=== PATIENT | female | born 1940 | race Caucasian/White ===

== ENCOUNTER → 2017-02-10 | Outpatient (CLI) | payer OTHER, BC | LOC: FIMAGING 14:06 | PROVIDERS: ATTEND Family Medicine | DX: M81.0 Age-related osteoporosis without current pathological fracture (principal) ==

== ENCOUNTER 2018-04-03 06:02 | Day surgery (SDC) | payer OTHER, BC ==
[2018-04-03] MEDS ORDERED: LIDOCAINE 1% 2 ML INJ ID PRN (06:11)
[2018-04-03] MEDS ORDERED: LR 1,000 ML IV ONE (06:11)
[2018-04-03] MEDS ORDERED: ceFAZolin 2 GM/SWFI 2 GM/20 ML SYR IVP ONE (06:11)
--- NOTE | 2018-04-03 06:21 | PDHPUP ---
History & Physical Update H&P update statement: This history and physical update is based on an assessment of the patient which was completed after admission or registration (within 24 hours), but prior to the surgery/procedure. H&P update: H&P reviewed & patient examined, no change in patient's condition since H&P completed
[2018-04-03] MEDS ORDERED: ceFAZolin 2 GM/DEXTROSE 100 ML IV ONE (06:30)
--- NOTE | 2018-04-03 06:56 | PDANEPAE ---
ANE History of Present Illness here for cholecystectomy ANE Past Medical History - Cardiovascular History Hx Hypertension: No Hx Arrhythmias: No Hx Chest Pain: No Hx Coronary Artery / Peripheral Vascular Disease: No Hx CHF / Valvular Disease: No Hx Palpitations: No Cardiovascular History Comment: HYPERLIPIDEMIA - Pulmonary History Hx COPD: No Hx Asthma/Reactive Airway Disease: No Hx Recent Upper Respiratory Infection: No Hx Oxygen in Use at Home: No Hx Sleep Apnea: No Sleep Apnea Screening Result - Last Documented: Negative - Neurologic History Hx Cerebrovascular Accident: No Hx Seizures: No Hx Dementia: No Neurologic History Comment: PERIPHERAL NEUROPATHY - Endocrine History Hx Diabetes: No Endocrine History Comment: HYPOTHYROIDISM - Renal History Hx Renal Disorders: No - Liver History Hx Hepatic Disorders: No - Neurological & Psychiatric Hx Hx Neurological and Psychiatric Disorders: No - Cancer History Hx Cancer: No - Congenital Disorder History Hx Congenital Disorders: No - GI History Hx Gastrointestinal Disorders: Yes Gastrointestinal History Comment: GOES BETWEEN DIARRHEA OR CONSTIPATION - Other Health History Other Health History: LEUKOCYTOSIS - Chronic Pain History Chronic Pain: No - Surgical History Prior Surgeries: X2. TUMOR REMOVED FROM NECK 2006. CATARACT SURGERY ANE Review of Systems Review of Systems: - Exercise capacity METS (RN): 5 METS ANE Patient History - Allergies Allergies/Adverse Reactions: No Known Allergies Allergy (Verified 03/30/18 17:54) - Home Medications Home medications: home medication list seen and reviewed Home Medications: Levothyroxine 08/17/16 [Last Taken 1 Day Ago ~04/02/18] Herbals/Supplements -Info Only 03/30/18 [Last Taken 03/30/18] Iron Supplement 03/30/18 [Last Taken 1 Day Ago ~04/02/18] - NPO status NPO Status: no food or drink >8 hours NPO Since - Liquids (Date): 04/02/18 NPO Since - Liquids (Time): 20:00 NPO Since - Solids (Date): 04/02/18 NPO Since - Solids (Time): 20:00 - Anes Hx Anes Hx: no prior problems - Smoking Hx Smoking Status: Never smoked - Alcohol Use Alcohol Use: None - Family Anes Hx Family Anes Hx: none Family Hx Anesthesia Complications: NONE ANE Labs/Vital Signs - Vital Signs Blood Pressure: 142/73 Heart Rate: 96 Respiratory Rate: 18 O2 Sat (%): 95 Height: 167.64 cm Weight: 57.153 kg ANE Physical Exam - Airway Neck exam: FROM Mallampati Score: Class 2 Mouth exam: normal dental/mouth exam - Pulmonary Pulmonary: no respiratory distress, clear to auscultation - Cardiovascular Cardiovascular: regular rate and rhythym, no murmur, rub, or gallop - ASA Status ASA Status: II ANE Anesthesia Plan Anesthesia Plan: general endotracheal anesthesia
[2018-04-03] MEDS ORDERED: fentaNYL 100 MCG/2 ML INJ ONE ×2 (07:02→09:48)
[2018-04-03] MEDS ORDERED: PROPOFOL 200 MG/20 ML VIAL ONE (07:03)
[2018-04-03] MEDS ORDERED: ROCURONIUM 50 MG/5 ML VIAL ONE (07:04)
[2018-04-03] MEDS ORDERED: LIDOCAINE 2% 100 MG/5 ML SYR ONE (07:04)
[2018-04-03] MEDS ORDERED: BUPIVACAINE 0.5% 30 ML SDV ONE (07:07)
[2018-04-03] MEDS ORDERED: DEXAMETHASONE 4 MG/ML VIAL ONE (07:49)
[2018-04-03] MEDS ORDERED: ONDANSETRON 4 MG/2 ML VIAL ONE (07:49)
--- NOTE | 2018-04-03 09:26 | POSTOPPROG ---
Post Op Note Date of Operation: 04/03/18 Surgeon: Radha Brooks Anesthesiologist: sudheer Anesthesia: GET(General Endotracheal) Pre-op Diagnosis: lymphadenopathy and hydrops of gallbladder Post-op Diagnosis: same Indication: 77 year old with pet avid lymph nodes and hydrops gallbladder Procedure: lap deb Findings: mass in gallbladder, poorly differentiated cancer Inf/Abcess present in the surg proc area at time of surgery?: No EBL: 50-100 Specimen(s): gallbladder
[2018-04-03] MEDS ORDERED: NALOXONE HCL 0.4 MG/ML INJ IVP PRN (09:31)
[2018-04-03] MEDS ORDERED: fentaNYL 100 MCG/2 ML INJ IVP PRN (09:31)
[2018-04-03] MEDS ORDERED: ONDANSETRON 4 MG/2 ML VIAL IVP PRN (09:31)
[2018-04-03] MEDS ORDERED: HYDROCODONE/APAP 5/325 TAB PO PRN (09:31)
[2018-04-03] MEDS ORDERED: oxyCODONE IR 5 MG TAB PO PRN (09:31)
[2018-04-03] MEDS ORDERED: ACETAMINOPHEN 500 MG TAB PO PRN (09:31)
[2018-04-03] MEDS ORDERED: PROMETHAZINE HCL 25 MG/ML INJ IVP PRN (09:31)
--- NOTE | 2018-04-03 09:33 | POSTANESTH ---
Post Anesthetic Evaluation Cardiovascular Status: Normal, Stable, Similar to Pre-Op Cond Respiratory Status: Normal, Stable, Similar to Pre-op Cond. Level of Consciousness/Mental Status: Can Participate in Eval, Alert and Oriented Pain Control: Adequate, Prn Tx Ordered Nausea/Vomiting Control: Adequate, Prn Tx Ordered Complications Possibly Related to Anesthesia: None Noted
[2018-04-03] MEDS ORDERED: HYDROCODONE/APAP 5/325 TAB ONE (10:31)
[2018-04-03 11:38] VITALS: BP 111/59
== END 2018-04-03 11:50 | disposition home or self-care (01) ==
LOC: FSGY 06:02
PROVIDERS: ATTEND Surgery
PROC: 07BC4ZX Excision of Pelvis Lymphatic, Percutaneous Endoscopic Approach, Diagnostic (ICD-10-PCS; principal; 2018-04-03 07:30)
PROC: 0FT44ZZ Resection of Gallbladder, Percutaneous Endoscopic Approach (ICD-10-PCS; principal; 2018-04-03 07:30)
DX: C23 Malignant neoplasm of gallbladder (principal); R59.1 Generalized enlarged lymph nodes; E05.90 Thyrotoxicosis, unspecified without thyrotoxic crisis or storm; E78.5 Hyperlipidemia, unspecified; R60.9 Edema, unspecified
CPT/HCPCS: J0690; J1100; J2001; J2405; J2704; J3010

== ENCOUNTER → 2018-10-26 | Outpatient (CLI) | payer OTHER, BC ==
[~2018-10-26] MED LIST: GADOBUTROL 10 ML VIAL IVP ONE
== END ==
LOC: FIMAGING 17:29
PROVIDERS: ATTEND Internal Medicine Hematology & Oncology
DX: C23 Malignant neoplasm of gallbladder (principal); R53.1 Weakness; R29.810 Facial weakness; C79.31 Secondary malignant neoplasm of brain
CPT/HCPCS: 70553; A9585

== ENCOUNTER → 2018-11-30 | Outpatient (CLI) | payer OTHER, BC | LOC: FIMAGING 12:33 | PROVIDERS: ATTEND Internal Medicine Hematology & Oncology | DX: I82.411 Acute embolism and thrombosis of right femoral vein (principal); I82.431 Acute embolism and thrombosis of right popliteal vein; I82.491 Acute embolism and thrombosis of other specified deep vein of right lower extremity ==

== ENCOUNTER 2018-12-10 10:05 | Inpatient (IN) | payer OTHER, BC ==
[2018-12-10] MEDS ORDERED: NS 500 ML IV ONE ×2 (10:45→17:30)
--- NOTE | 2018-12-10 10:47 | EDPHY ---
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 She completed whole-brain radiation therapy November 15. Ten days ago she was diagnosed with a right leg DVT and started on Xarelto which she is taking compliantly. She began feeling weak 3 days ago, went to her oncologist 3 days ago for fluid bolus, and at 2:00 a.m. Monday became increasingly weak with trouble walking. Patient arrives hypoxic in the 80s on room air and hypotensive but afebrile and not tachypneic or tachycardic. She has no physical complaints. Abdomen is soft without focal peritoneal findings. CT head today shows several large cerebellar hemorrhagic metastases that appear larger than her scans prior to radiation, the largest of which being 17 x 14 mm. She also has several frontal lobe metastases. No midline shift. Chest x-ray initially suspicious for pneumonia and patient has a leukocytosis of 11 with a lactate of 2.5. However given that she was hypoxic with a recent history of DVT, CTA was performed which confirmed bilateral right and lower lobe pulmonary emboli. Unfortunately , patient's coagulation panels are quite elevated with a PTT of 56 and an INR of 3.1. We do not feel patient is a good candidate for heparin. Remainder of lab work shows no renal insufficiency, significant metabolic disturbance, and hyponatremia at 128. She did receive an initial fluid bolus according to sepsis protocol. IV antibiotics were started after obtaining blood cultures. Respiratory panels obtained. No evidence of urinary tract infection or other source of infection. Patient was discussed with Dr. Carrasco who also saw and examined the patient. I had a long discussion with patient's regarding her imaging results. Will plan to admit to hospitalist service for further management and Oncology follow-up. DIFFERENTIAL DX: Differential includes but not limited to worsening brain metastases, TIA, CVA, infection, sepsis, dehydration, electrolyte imbalance ED PROCEDURES: See lab and/or imaging results below ED COURSE: 11:50 a.m.: Case discussed at length with Dr. Carrasco, reviewed all diagnostic studies. Patient is hypoxic requiring 3 L to maintain saturations at 95% with a history of DVT on Xarelto. Chest x-ray abnormal, infiltrate versus pulmonary edema. Given that patient is hypoxic a CT angiogram was obtained. Patient does have a mild leukocytosis, elevated INR, abnormal lactate, and sepsis criteria was followed with initial fluid bolus ordered over 6 hr, IV antibiotics , repeat lactate, and blood cultures. At 12:45 p.m.: I received a call from radiologist stating that patient does have bilateral left lower lobe and right lower lobe pulmonary embolism with no significant clot burden. This is associated with mild pulmonary edema. I discussed with Benita, on-call for hospitalist service. She would like the patient to receive heparin in the ED and they will follow on the floor. Unfortunately patient has a supratherapeutic INR and PTT of 56, I do not feel she is a good candidate for heparin therapy. Results reviewed with the patient and Dr. Carrasco who spoke to hospitalist again and heparin will be withheld until evaluation by Dr. Chi. 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 Bishop, presenting to the ED today with her and daughter Elizabeth, after she became acutely weak and had difficulty walking beginning at 2:00 a.m. Monday. Her is the primary history provider. He reports she was somewhat weak on Monday and was told by her oncologist office to come to the clinic for IV hydration. She had a sudden change in symptoms on Monday described as weakness with very intermittent ability to put weight on the legs using a walker. This morning her describes her as " weight". She has had decreased oral intake for the last 2 days. No documented fever or chills. She has had a mild runny nose but otherwise no physical complaints. No witnessed trauma or fall. She had a cholecystectomy in March of 2018 followed by abdominal radiation therapy completed in September. She had an MRI in October of 2018 showing supra and infra tentorial metastases. She underwent whole-brain radiation completing this November 15. She has not yet had follow- up CT or MRI imaging after completing whole-brain radiation. Her reports some decline in her baseline mental status. No history of UTI, chronic pneumonia, nausea, vomiting, black tarry stools. She was diagnosed with a right leg DVT approximately 10 days ago and has been compliant with Xarelto. No perceived shortness of breath and no reported chest pain. 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 Eyes: No discharge, vision change ENT: No sore throat, congestion, ear pain. Cardiovascular: No chest pain, no palpitations. Respiratory: No cough, no shortness of breath. Gastrointestinal: No abdominal pain, no vomiting, diarrhea. Genitourinary: No hematuria, dysuria, flank pain, pelvic pain Musculoskeletal: No back pain, joint swelling, joint pain, myalgias. Skin: No rashes, color change. Neurological: No headache, dizziness, positive for weakness. PHYSICAL EXAM: General Appearance: Alert, oriented, appropriate, frail, chronically ill- appearing, answering only yes or no questions, cooperative, NAD, non-toxic appearing, hypotensive at 84/59, normally runs in the low 100s systolic click, according to her , no hypoxia. HEENT: TMs are clear bilaterally no perforation or FB, no injection, no evidence of serous or mucopurulent otitis. Oropharynx clear is no erythema or exudates, no tonsillar hypertrophy or asymmetry. Dentition without abnormality. Eyes: PERRLA, no acute vision change, nystagmus, swelling, discharge, pain or photosensitivity. Blind in left eye. Conjunctiva pink, no pallor or injection Neck: Supple, nontender, no lymphadenopathy, no midline pain, FROM, no meningismus. No supraclavicular lymphadenopathy Respiratory: There are no retractions, lungs are clear to auscultation. Cardiac: Regular rate and rhythm, no murmurs or gallops. Gastrointestinal: Abdomen is soft, nontender, bowel sounds normal, no masses/ hernia, no rigidity, guarding or focal peritoneal findings. Neurological: Alert and oriented x 3, CN 2-12 grossly intact, gait not tested, patient required 3 people to help lift her out of a chair and into the bed. She is able to actively bend both knees, extend both legs at the hips and hold them off the bed, and dorsiflex and plantar flex without difficulty. Negative Babinski. No asymmetric swelling, redness or warmth to the legs. No clonus. NIH score of 0, no limb ataxia Skin: Warm, dry, no rashes, no nodules on palpation. Musculoskeletal: Extremities are symmetrical, full range of motion, no tenderness, deformity, swelling, or erythema. Psychiatric: Patient is oriented X 3, there is no agitation. MEDICAL DECISION MAKING: Patient was seen independently. Secondary supervising physician at time of evaluation was Dr. Carrasco . Diagnosis: Pulmonary emboli, weakness, trouble walking, hypoxia . New, requires workup Summary: See Assessment and Plan for summary of ED visit Clinical lab tests: ordered / reviewed. Independent visualization of images, tracing, or specimens: Yes. Decision to obtain medical records or history from someone other than the patient: Patient's Review / Summarize previous medical records: Reviewed past Oncology notes and recent labs Discussed patient with another provider: Dr. Carrasco, radiology, hospitalist service Patient Progress: Fair. (Geovanny Palma) - Diagnostics Imaging Results: Imaging Impressions Chest X-Ray 12/10/18 10:37 Impression: Indistinct bilateral opacities that could be related to multifocal pneumonia, pulmonary edema, or other etiology. Radiographic follow-up is recommended to resolution. Findings called to the ER nurse 12/10/2018 at 11:21. Head CT 12/10/18 10:38 Impression: 1. At least 4 hemorrhagic metastasis again noted with 3 of the 4 appearing larger than previous study and all demonstrating acute hemorrhage since prior study. 2. Bilateral cerebellar hemorrhagic metastasis with the largest in the right cerebellar hemisphere measuring 17 x 14 mm. 3. No midline shift, herniation or hydrocephalus. Findings and recommendations discussed with Emergency Department physician, Geovanny Palma, at 1211 hour, 12/10/2018. Final report concurs with initial preliminary interpretation. Findings and recommendations given to Dr. Kemar Chi at 1335 hour, 2018. Chest/Thorax CTA 12/10/18 11:56 Impression: 1. Segmental and subsegmental predominantly right lower lobe pulmonary emboli. 2. New diffuse bilateral ground-glass opacities, which could be a combination of pulmonary edema and atelectasis. Pneumonitis, drug response, or less likely pneumonia could have a similar appearance. 3. Grossly stable upper abdominal adenopathy. 4. Grossly stable 6 x 5 mm left upper lobe nodule. Comparison to previous studies is recommended. If these can be made available, I would happy to compare them. 5. Additional findings as above. Preliminary findings discussed with Geovanny Palma, 12/10/2018 at 12:43. Comparison with the [facility] study was performed after discussion with Geovanny Palma , when the study was imported from [facility]. Discussion: This patient was seen and examined by me. She presents with generalized weakness and hypoxia. Recent nasal congestion and shortness of breath at home. Pt is non-toxic appearing, chest is clear to auscultation. Chest x-ray reveals bilateral infiltrates, concerning for pneumonia, though query PE. Initial lactate is elevated. The sepsis protocol was followed and CTA ordered. I agree with the assessment and plan. (Aneta Carrasco) - Objective Vital Signs: Initial Vital Signs Temperature (C) 36.8 C 12/10/18 10:10 Heart Rate 91 12/10/18 10:10 Respiratory Rate 18 12/10/18 10:10 Blood Pressure 84/59 L 12/10/18 10:10 O2 Sat (%) 91 L 12/10/18 10:10 O2 Delivery Mode Nasal Cannula O2 (L/minute) 2 Allergies/Adverse Reactions: No Known Allergies Allergy (Verified 12/10/18 10:09) Home Medications: Medication Instructions Recorded Levothyroxine [Synthroid 50 mcg 50 mcg PO DAILY06 #0 08/17/16 (*)] Ferrous Sulfate [Ferrous Sulf 325 325 mg PO DAILY #0 03/30/18 MG (*)] Cholecalciferol Vit D3 [Vitamin D3 5,000 units PO DAILY 12/10/18 (*)] Dexamethasone [Decadron 4 MG (*)] 4 mg PO DAILY06 12/10/18 Docusate Sodium [Colace 100 MG (*)] 100 mg PO DAILY 12/10/18 Fexofenadine HCl [Erma Allergy] 180 mg PO DAILY18 12/10/18 Rivaroxaban [Xarelto 15mg (*)] 15 mg PO BID@,18 12/10/18 Sennosides [Senna Lax] 8.6 mg PO BID 12/10/18 guaiFENesin [Mucinex 600 MG (*)] 600 mg PO DAILY 12/10/18 Laboratory Results: Laboratory Results 12/10/18 10:45 12/10/18 10:45 12/10/18 12/10/18 12/10/18 12:16 11:35 10:45 WBC RBC Hgb Hct MCV MCH MCHC RDW Plt Count MPV Neut % (Auto) Lymph % (Auto) Geary % (Auto) Eos % (Auto) Baso % (Auto) Nucleat RBC Rel Count Absolute Neuts (auto) Absolute Lymphs (auto) Absolute Monos (auto) Absolute Eos (auto) Absolute Basos (auto) Absolute Nucleated RBC Immature Gran % Immature Gran # RBC/WBC/PLT Morphology Platelet Estimate PT INR APTT VBG Lactic Acid 2.4 mmol/L H mmol/L 2.5 mmol/L H mmol/L (0.7-2.1) (0.7-2.1) Sodium Potassium Chloride Carbon Dioxide Anion Gap BUN Creatinine Estimated GFR Glucose Calcium Total Bilirubin NT-Pro-B Natriuret Pep 404 pg/mL pg/mL (0-450) Urine Color Urine Appearance Urine pH Ur Specific [place] Urine Protein Urine Ketones Urine Blood Urine Nitrate Urine Bilirubin Urine Urobilinogen Ur Leukocyte Esterase Urine RBC Urine WBC Ur Epithelial Cells Hyaline Casts Urine Mucus Urine Glucose 12/10/18 12/10/18 12/10/18 10:45 10:45 10:45 WBC RBC Hgb Hct MCV MCH MCHC RDW Plt Count MPV Neut % (Auto) Lymph % (Auto) Geary % (Auto) Eos % (Auto) Baso % (Auto) Nucleat RBC Rel Count Absolute Neuts (auto) Absolute Lymphs (auto) Absolute Monos (auto) Absolute Eos (auto) Absolute Basos (auto) Absolute Nucleated RBC Immature Gran % Immature Gran # RBC/WBC/PLT Morphology Platelet Estimate PT 31.9 SEC H SEC (12.0-15.0) INR 3.12 H (0.83-1.16) APTT 56.7 SEC H SEC (23.0-38.0) VBG Lactic Acid Sodium 128 mEq/L L mEq/L (135-145) Potassium 3.6 mEq/L mEq/L (3.5-5.2) Chloride 100 mEq/L mEq/L (97-110) Carbon Dioxide 21 mEq/l L mEq/l (22-31) Anion Gap 7 mEq/L mEq/L (6-14) BUN 19 mg/dL mg/dL (7-23) Creatinine 0.7 mg/dL mg/dL (0.6-1.0) Estimated GFR > 60 Glucose 163 mg/dL H mg/dL (70-100) Calcium 8.4 mg/dL L mg/dL (8.5-10.4) Total Bilirubin 0.3 mg/dL mg/dL (0.1-1.4) NT-Pro-B Natriuret Pep Urine Color YELLOW Urine Appearance CLEAR Urine pH 6.0 (5.0-7.5) Ur Specific [place] 1.017 (1.002-1.030) Urine Protein 1+ H (NEGATIVE) Urine Ketones NEGATIVE (NEGATIVE) Urine Blood NEGATIVE (NEGATIVE) Urine Nitrate NEGATIVE (NEGATIVE) Urine Bilirubin NEGATIVE (NEGATIVE) Urine Urobilinogen NEGATIVE EU EU (0.2-1.0) Ur Leukocyte Esterase NEGATIVE (NEGATIVE) Urine RBC 3-5 /hpf H /hpf (0-3) Urine WBC 1-3 /hpf /hpf (0-3) Ur Epithelial Cells NONE SEEN /lpf /lpf (NONE-1+) Hyaline Casts 1-5 /lpf /lpf (0-1) Urine Mucus TRACE /lpf /lpf (NONE-1+) Urine Glucose NEGATIVE (NEGATIVE) 12/10/18 10:45 WBC 11.30 10^3/uL H 10^3/uL (3.80-9.50) RBC 3.52 10^6/uL L 10^6/uL (4.18-5.33) Hgb 11.3 g/dL L g/dL (12.6-16.3) Hct 33.8 % L % (38.0-47.0) MCV 96.0 fL fL (81.5-99.8) MCH 32.1 pg pg (27.9-34.1) MCHC 33.4 g/dL g/dL (32.4-36.7) RDW 17.2 % H % (11.5-15.2) Plt Count 244 10^3/uL 10^3/uL (150-400) MPV 10.0 fL fL (8.7-11.7) Neut % (Auto) 94.7 % H % (39.3-74.2) Lymph % (Auto) 3.0 % L % (15.0-45.0) Geary % (Auto) 0.9 % L % (4.5-13.0) Eos % (Auto) 0.0 % L % (0.6-7.6) Baso % (Auto) 0.2 % L % (0.3-1.7) Nucleat RBC Rel Count 0.0 % % (0.0-0.2) Absolute Neuts (auto) 10.70 10^3/uL H 10^3/uL (1.70-6.50) Absolute Lymphs (auto) 0.34 10^3/uL L 10^3/uL (1.00-3.00) Absolute Monos (auto) 0.10 10^3/uL L 10^3/uL (0.30-0.80) Absolute Eos (auto) 0.00 10^3/uL L 10^3/uL (0.03-0.40) Absolute Basos (auto) 0.02 10^3/uL 10^3/uL (0.02-0.10) Absolute Nucleated RBC 0.00 10^3/uL 10^3/uL (0-0.01) Immature Gran % 1.2 % H % (0.0-1.1) Immature Gran # 0.14 10^3/uL H 10^3/uL (0.00-0.10) RBC/WBC/PLT Morphology TNP Platelet Estimate TNP PT INR APTT VBG Lactic Acid Sodium Potassium Chloride Carbon Dioxide Anion Gap BUN Creatinine Estimated GFR Glucose Calcium Total Bilirubin NT-Pro-B Natriuret Pep Urine Color Urine Appearance Urine pH Ur Specific [place] Urine Protein Urine Ketones Urine Blood Urine Nitrate Urine Bilirubin Urine Urobilinogen Ur Leukocyte Esterase Urine RBC Urine WBC Ur Epithelial Cells Hyaline Casts Urine Mucus Urine Glucose Microbiology Results: MICROBIOLOGY 12/10/18 13:15 Nasal, Sinus - Swab Respiratory Panel (PCR) - Final Human Rhinovirus/Enterovirus Medications Given: Cetirizine HCl (Zyrtec) 10 mg PO DAILY@1800 SCOTT Stop: 06/08/19 17:59 Last Admin: 12/10/18 18:30 Dose: 10 mg Sodium Chloride (Ns) 1,000 mls @ 150 mls/hr IV CONT SCOTT Stop: 06/08/19 17:59 Last Admin: 12/10/18 20:36 Dose: 1,000 mls Melatonin (Melatonin) 3 mg PO HS SCOTT Stop: 06/08/19 20:59 Last Admin: 12/10/18 20:28 Dose: 3 mg Rivaroxaban (Xarelto) 15 mg PO BID@06,18 SCOTT Stop: 06/08/19 17:59 Last Admin: 12/10/18 18:30 Dose: 15 mg Senna (Senokot) 1 tab PO BID SCOTT Stop: 06/08/19 20:59 Last Admin: 12/10/18 20:28 Dose: 1 tab Discontinued Medications Sodium Chloride (Ns) 500 mls @ 0 mls/hr IV EDNOW ONE; Wide Open PRN Reason: Protocol Stop: 12/10/18 10:46 Last Admin: 12/10/18 10:45 Dose: 500 mls Azithromycin 500 mg/ Sodium (Chloride) 255 mls @ 255 mls/hr IV EDNOW ONE PRN Reason: Protocol Stop: 12/10/18 12:54 Last Admin: 12/10/18 13:09 Dose: 255 mls Ceftriaxone Sodium/Dextrose (Rocephin 1 Gm (Premix)) 50 mls @ 100 mls/hr IV EDNOW ONE PRN Reason: Protocol Stop: 12/10/18 12:22 Last Admin: 12/10/18 13:05 Dose: 50 mls Sodium Chloride (Ns) 1,600 mls @ 266.6666 mls/hr 30 ml/kg infuse over 6 hr ( 1600 ml) IV EDNOW ONE PRN Reason: Protocol Stop: 12/10/18 17:52 Last Admin: 12/10/18 13:08 Dose: 1,600 mls Sodium Chloride (Ns) 500 mls @ 0 mls/hr IV ONCE ONE Stop: 12/10/18 17:31 Last Admin: 12/10/18 17:00 Dose: 500 mls Albumin Human (Flexbumin 25 % (Premix)) 200 mls @ 0 mls/hr IV ONCE ONE PRN Reason: As Directed Stop: 12/10/18 17:47 Last Admin: 12/10/18 18:30 Dose: 200 mls Sodium Chloride (Salt Tablet) 500 mg PO ONCE ONE Stop: 12/10/18 14:25 Last Admin: 12/10/18 17:15 Dose: Not Given Sodium Chloride (Salt Tablet) 500 mg PO ONCE ONE Stop: 12/10/18 17:16 Last Admin: 12/10/18 17:17 Dose: 500 mg Departure - Departure Disposition: [facility] Acute Condition: Fair
[2018-12-10 11:18] LABS: PLATELET COUNT 244 10^3/uL (150-400)
[2018-12-10 11:31] LABS: INR 3.12 (0.83-1.16); PROTIME(PATIENT) 31.9 SEC (12.0-15.0)
[2018-12-10] MEDS ORDERED: NS 1,600 ML IV ONE (11:53)
[2018-12-10] MEDS ORDERED: AZITHROMYCIN IV 500 MG in NS 250 ML IV ONE (11:55)
[2018-12-10] MEDS ORDERED: IOHEXOL 350mgI/ML (OMNIPAQUE) 150 ML BTL IV ONE (12:13)
[2018-12-10] MEDS ORDERED: SODIUM CHLORIDE 1,000 MG TAB PO ONE ×2 (14:24→17:15)
--- NOTE | 2018-12-10 14:32 | HOSPPROG ---
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 Surgical resection of gallbladder. Finished 10 days of whole brain radiation on 11/15. She has known brain Mets so she is taking dexamethasone to reduce swelling. Shortly after this she was diagnosed with DVT in the leg and was started on Xarelto which she is still taking now. Seen in onc clinic 11/30 symptoms including L arm and leg weakness, and was noted to have some facial droop. Plans made for repeat MRI brain later this month Seen again in onc clinic 12/07 and had worsening generalized weakness and fatigue , was given some IV fluids Since then she has had continued worsening weakness, usualy able to walk, can now barely get to feet w assist, says she is like weight PO intake is diminshed particularlty for fluids Here in ER she is comfortable, no headache or other pains Has not been coughing or sob ROS: A comprehensive 10 system review revealed no other significant findings PAST MEDICAL HISTORY: Gallbladder carcinoma Glaucoma Hyperglycemia Hypertriglyceridemia Hypothyroidism Osteoporosis Polyneuropathy Platelet abnormalities Vitamin B12 deficiency FAMILY MEDICAL HISTORY: no specific concerning family history SOCIAL HISTORY: lives with her who is a catcher helper for her at this point MEDICATIONS: The patients list has been reconciled by our clinical pharmacist in the EMR. I have reviewed the list and ordered appropriate medicines. PHYSICAL EXAMINATION: Vital Signs: Initial blood pressure here was low but blood pressures have improved to good range since then, otherwise stable with no fever Arabic Professor: Sinus rhythm Examination: General: alert, oriented, good mentation, relaxed Skin: warm, dry, good color, no rash HEENT: normal Neck: no mass or jvd Resps: relaxed Lungs: clear breath sounds Heart: regular, no murmur Abdomen: soft, nondistended, nontender, +BS, no mass Upper Extremities: normal Lower Extremities: no edema, warm No Bleeding or bruising Neurologic: normal speech/language, normal transportation planning technician, no focal weakness IV site: looks normal LABORATORY DATA: White blood cell count 05821 with predominance in neutrophils Hemoglobin 11 platelets stable Lactate 2.5 venous Sodium was 128 CO2 21, normal renal function, glucose slightly high 160 RADIOLOGY STUDIES: I reviewed images from CT scan of chest showing scattered patchy alveolar infiltrates in both lungs, I have also reviewed images of CT scan from the head noncontrast done today in the ER as well as comparison MRI brain with contrast October 26. I reviewed these images with both Dr. Reinaldo Coy and Gerson Harris. There are several metastatic lesions which all appear to likely have been present on the October MRI. Four of these are slightly larger on today's study compared to October. They are rim enhancing on the MRI. Dr. Coy felt that these were hemorrhagic areas but Dr. Harris feels that these are not hemorrhagic and are rim enhancing from active tumor growth in those areas. ASSESSMENT: * Acute community-acquired pneumonia * very mild early sepsis with Hypotension and mild lactic acidosis but no organ failure * Generalized weakness deconditioning, with some focal weakness as well, both worsening * Increasing size of metastatic brain lesions, uncertain if this is growth of the tumor or swelling under her current conditions; after review with Radiology , Neurosurgery, and Dr. Bishop who knows the patient, I do not believe these are hemorrhagic lesions at this time * Hyponatremia, with both poor oral intake at home and a large volume of infused IV fluids 3 days ago in clinic; strongly suspect SIADH but need to check urine studies * Recent DVT and PE, on Xarelto since mid November * Suspect dehydration may be present but did disc it a large volume of IV fluids 3 days ago in clinic, appears close to euvolemic by exam The patient at this point is weak enough and has complicated enough acute issues that she will require inpatient medical care and longer than 48 hr stay. Community-acquired pneumonia can be treated with standard measures I reviewed with Dr. Bishop and Dr. Harris who both feel that the patient does have some risk of hemorrhage in her brain lesions with anticoagulation but that is a relatively low risk and that her risk of fatal or debilitating PE is actually notably higher in her current setting. They are recommending we go ahead with anticoagulation at this time PLANS: * Inpatient admission * IV Rocephin and azithromycin were given in the ER after cultures drawn; will change to Levaquin at this time to avoid giving IV fluids with her hyponatremia * Recheck sodium this afternoon after the IV fluids she got in the ER, check a urine sodium and osmoles, and make a determination of how to manage her serum sodium and fluid balance * Continue Xarelto * Continue current dose of dexamethasone * Fall risk precautions * Physical occupational therapy I have reviewed the patient's case in detail with Dr. Kevon Bishop I have reviewed the patient's past medical records as part of this assessment, including outpatient clinic records and imaging studies Objective: Vital Signs Temp Pulse Resp BP Pulse Ox 36.8 C 77 16 99/57 L 93 12/10/18 10:10 12/10/18 13:10 12/10/18 13:10 12/10/18 13:10 12/10/18 13:10 PT 31.9 SEC (12.0-15.0) H 12/10/18 10:45 INR 3.12 (0.83-1.16) H 12/10/18 10:45
--- NOTE | 2018-12-10 15:00 | PDGENHP ---
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 Surgical resection of gallbladder. Finished 10 days of whole brain radiation on 11/15. She has known brain Mets so she is taking dexamethasone to reduce swelling. Shortly after this she was diagnosed with DVT in the leg and was started on Xarelto which she is still taking now. Seen in onc clinic 11/30 symptoms including L arm and leg weakness, and was noted to have some facial droop. Plans made for repeat MRI brain later this month Seen again in onc clinic 12/07 and had worsening generalized weakness and fatigue , was given some IV fluids Since then she has had continued worsening weakness, usualy able to walk, can now barely get to feet w assist, says she is like weight PO intake is diminshed particularlty for fluids Here in ER she is comfortable, no headache or other pains Has not been coughing or sob ROS: A comprehensive 10 system review revealed no other significant findings PAST MEDICAL HISTORY: Gallbladder carcinoma Glaucoma Hyperglycemia Hypertriglyceridemia Hypothyroidism Osteoporosis Polyneuropathy Platelet abnormalities Vitamin B12 deficiency FAMILY MEDICAL HISTORY: no specific concerning family history SOCIAL HISTORY: lives with her who is a chemistry associate for her at this point MEDICATIONS: The patients list has been reconciled by our clinical pharmacist in the EMR. I have reviewed the list and ordered appropriate medicines. PHYSICAL EXAMINATION: Vital Signs: Initial blood pressure here was low but blood pressures have improved to good range since then, otherwise stable with no fever Evp [place]: Sinus rhythm Examination: General: alert, oriented, good mentation, relaxed Skin: warm, dry, good color, no rash HEENT: normal Neck: no mass or jvd Resps: relaxed Lungs: clear breath sounds Heart: regular, no murmur Abdomen: soft, nondistended, nontender, +BS, no mass Upper Extremities: normal Lower Extremities: no edema, warm No Bleeding or bruising Neurologic: normal speech/language, normal right of way manager, no focal weakness IV site: looks normal LABORATORY DATA: White blood cell count 33586 with predominance in neutrophils Hemoglobin 11 platelets stable Lactate 2.5 venous Sodium was 128 CO2 21, normal renal function, glucose slightly high 160 RADIOLOGY STUDIES: I reviewed images from CT scan of chest showing scattered patchy alveolar infiltrates in both lungs, I have also reviewed images of CT scan from the head noncontrast done today in the ER as well as comparison MRI brain with contrast October 26. I reviewed these images with both Dr. Reinaldo Coy and Gerson Harris. There are several metastatic lesions which all appear to likely have been present on the October MRI. Four of these are slightly larger on today's study compared to October. They are rim enhancing on the MRI. Dr. Coy felt that these were hemorrhagic areas but Dr. Harris feels that these are not hemorrhagic and are rim enhancing from active tumor growth in those areas. ASSESSMENT: * Acute community-acquired pneumonia * very mild early sepsis with Hypotension and mild lactic acidosis but no organ failure * Generalized weakness deconditioning, with some focal weakness as well, both worsening * Increasing size of metastatic brain lesions, uncertain if this is growth of the tumor or swelling under her current conditions; after review with Radiology , Neurosurgery, and Dr. Bishop who knows the patient, I do not believe these are hemorrhagic lesions at this time * Hyponatremia, with both poor oral intake at home and a large volume of infused IV fluids 3 days ago in clinic; strongly suspect SIADH but need to check urine studies * Recent DVT and PE, on Xarelto since mid November * Suspect dehydration may be present but did disc it a large volume of IV fluids 3 days ago in clinic, appears close to euvolemic by exam The patient at this point is weak enough and has complicated enough acute issues that she will require inpatient medical care and longer than 48 hr stay. Community-acquired pneumonia can be treated with standard measures I reviewed with Dr. Bishop and Dr. Harris who both feel that the patient does have some risk of hemorrhage in her brain lesions with anticoagulation but that is a relatively low risk and that her risk of fatal or debilitating PE is actually notably higher in her current setting. They are recommending we go ahead with anticoagulation at this time PLANS: * Inpatient admission * IV Rocephin and azithromycin were given in the ER after cultures drawn; will change to Levaquin at this time to avoid giving IV fluids with her hyponatremia * Recheck sodium this afternoon after the IV fluids she got in the ER, check a urine sodium and osmoles, and make a determination of how to manage her serum sodium and fluid balance * Continue Xarelto * Continue current dose of dexamethasone * Fall risk precautions * Physical occupational therapy I have reviewed the patient's case in detail with Dr. Kevon Bishop I have reviewed the patient's past medical records as part of this assessment, including outpatient clinic records and imaging studies
[2018-12-10] MEDS ORDERED: ACETAMINOPHEN 325 MG TAB PO PRN (15:03)
[2018-12-10] MEDS ORDERED: ONDANSETRON 4 MG/2 ML VIAL IVP PRN (15:03)
--- NOTE | 2018-12-10 15:08 | PDGENHP ---
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 Surgical resection of gallbladder. Finished 10 days of whole brain radiation on 11/15. She has known brain Mets so she is taking dexamethasone to reduce swelling. Shortly after this she was diagnosed with DVT in the leg and was started on Xarelto which she is still taking now. Seen in onc clinic 11/30 symptoms including L arm and leg weakness, and was noted to have some facial droop. Plans made for repeat MRI brain later this month Seen again in onc clinic 12/07 and had worsening generalized weakness and fatigue , was given some IV fluids Since then she has had continued worsening weakness, usualy able to walk, can now barely get to feet w assist, says she is like weight PO intake is diminshed particularlty for fluids Here in ER she is comfortable, no headache or other pains Has not been coughing or sob ROS: A comprehensive 10 system review revealed no other significant findings PAST MEDICAL HISTORY: Gallbladder carcinoma Glaucoma Hyperglycemia Hypertriglyceridemia Hypothyroidism Osteoporosis Polyneuropathy Platelet abnormalities Vitamin B12 deficiency FAMILY MEDICAL HISTORY: no specific concerning family history SOCIAL HISTORY: lives with her who is a butcher apprentice for her at this point MEDICATIONS: The patients list has been reconciled by our clinical pharmacist in the EMR. I have reviewed the list and ordered appropriate medicines. PHYSICAL EXAMINATION: Vital Signs: Initial blood pressure here was low but blood pressures have improved to good range since then, otherwise stable with no fever Professor Of Musicology: Sinus rhythm Examination: General: alert, oriented, good mentation, relaxed Skin: warm, dry, good color, no rash HEENT: normal Neck: no mass or jvd Resps: relaxed Lungs: clear breath sounds Heart: regular, no murmur Abdomen: soft, nondistended, nontender, +BS, no mass Upper Extremities: normal Lower Extremities: no edema, warm No Bleeding or bruising Neurologic: normal speech/language, normal cellophane bath mixer, no focal weakness IV site: looks normal LABORATORY DATA: White blood cell count 95218 with predominance in neutrophils Hemoglobin 11 platelets stable Lactate 2.5 venous Sodium was 128 CO2 21, normal renal function, glucose slightly high 160 RADIOLOGY STUDIES: I reviewed images from CT scan of chest showing scattered patchy alveolar infiltrates in both lungs, I have also reviewed images of CT scan from the head noncontrast done today in the ER as well as comparison MRI brain with contrast October 26. I reviewed these images with both Dr. Reinaldo Coy and Gerson Harris. There are several metastatic lesions which all appear to likely have been present on the October MRI. Four of these are slightly larger on today's study compared to October. They are rim enhancing on the MRI. Dr. Coy felt that these were hemorrhagic areas but Dr. Harris feels that these are not hemorrhagic and are rim enhancing from active tumor growth in those areas. ASSESSMENT: * Acute community-acquired pneumonia * very mild early sepsis with Hypotension and mild lactic acidosis but no organ failure * Generalized weakness deconditioning, with some focal weakness as well, both worsening * Increasing size of metastatic brain lesions, uncertain if this is growth of the tumor or swelling under her current conditions; after review with Radiology , Neurosurgery, and Dr. Bishop who knows the patient, I do not believe these are hemorrhagic lesions at this time * Hyponatremia, with both poor oral intake at home and a large volume of infused IV fluids 3 days ago in clinic; strongly suspect SIADH but need to check urine studies; this is likely aggravating her mentation and weakness and could cause increased seizure risk * Recent DVT and PE, on Xarelto since mid November * Suspect dehydration may be present but did disc it a large volume of IV fluids 3 days ago in clinic, appears close to euvolemic by exam The patient at this point is weak enough and has complicated enough acute issues that she will require inpatient medical care and longer than 48 hr stay. Community-acquired pneumonia can be treated with standard measures I reviewed with Dr. Bishop and Dr. Harris who both feel that the patient does have some risk of hemorrhage in her brain lesions with anticoagulation but that is a relatively low risk and that her risk of fatal or debilitating PE is actually notably higher in her current setting. They are recommending we go ahead with anticoagulation at this time PLANS: * Inpatient admission * IV Rocephin and azithromycin given in the ER; will continue IV Rocephin and changed to oral is a throw to minimize IV fluids with her low sodium. Avoid Levaquin at this time due to brain mets and potential risk of seizures. * Recheck sodium this afternoon after the IV fluids she got in the ER, check a urine sodium and osmoles, and make a determination of how to manage her serum sodium and fluid balance * Continue Xarelto * Continue current dose of dexamethasone * Fall risk precautions * Physical occupational therapy * DVT prophylaxis she is on full-dose Xarelto at present I have reviewed the patient's case in detail with Dr. Kevon Bishop I have reviewed the patient's past medical records as part of this assessment, including outpatient clinic records and imaging studies
--- NOTE | 2018-12-10 15:23 | CPEKG ---
Test Reason : OPEN Blood Pressure : / mmHG Vent. Rate : 079 BPM Atrial Rate : 079 BPM P-R Int : 137 ms QRS Dur : 093 ms QT Int : 416 ms P-R-T Axes : 057 034 061 degrees QTc Int : 477 ms Sinus rhythm Confirmed by Aneta Billy ([id number]) on 12/10/2018 3:23:36 PM Referred By: ANETA BILLY Confirmed By:Aneta Billy
--- NOTE | 2018-12-10 16:57 | PDMN ---
Medical Necessity Medical necessity: [facility] M160 Sepsis, A-3 days: 78 yo w/ worsening weakness, inability to walk in setting of cholangiocarcinoma w/ brain mets and recent DVT. Further eval reveals CAP. IV antibx started. Pt is a fall risk and risk for hemorrhage w/ worsening brain lesions on imaging w/ anticoag for DVT. Pt also hyponatremic w/ Na+ 128. Pt cont to be hypotensive despite IV fluids and lactate increased confirming sepsis. PT/OT ordered. IP status for severe weakness w/ complicated acute issues requiring IP care and >48hr stay.
--- NOTE | 2018-12-10 17:12 | GCON ---
[f rep st] CONSULTATION MEDICAL ONCOLOGY FOLLOWUP CONSULTATION REFERRING PHYSICIAN: Kemar Chi MD REASON FOR CONSULTATION: Ongoing management of metastatic carcinoma of the gallbladder and associate d complications. RECOMMENDATIONS: 1. Would further evaluate her pulmonary infiltrates. Have the appearance of pneumonitis on CT scan. This could certainly be infectious with viral syndrome for instance, but could also be Pneumocystis since she has been on steroids for her brain metastases. She may require bronchoscopy for further e valuation. 2. There is a report on the CT scan of her brain that the metastatic lesions look worse and are perh aps hemorrhagic. To me, they appear to be more ring-enhancing in nature, as opposed to hemorrhagic. I think further characterization with MRI of the brain with and without contrast to be appropriate s anel we will be able to compare to her previous MRI. 3. I will continue with her anticoagulation for her lower extremity DVT and recently diagnosed very small volume pulmonary embolism. 4. We will continue to encourage physical therapy and occupational therapy evaluation. 5. Further recommendations will depend on this initial workup. ASSESSMENT: 1. This 78-year-old woman who is well known to me, was first diagnosed with adenocarcinoma of the ne ck of the gallbladder in March of 2018. At that time, she had retroperitoneal lymphadenopathy. Since this was her only site of disease after surgery, she had these areas irradiated. Unfortunately, she has continued to lose weight and become weaker. She had more difficulty walking and was diagnosed wi th metastatic disease in her brain. She received whole-brain radiation, a total of 10 treatments for 3000 cGy ending on the November. She was to be re-evaluated with an MRI done of her bra in in the next couple of weeks. Last week, her clinical condition deteriorated. She was diagnosed w ith a deep venous thrombosis and more trouble walking. She had poor p.o. intake and was hydrated in the office, but despite this continued to deteriorate over the weekend, and went to the emergency daryl m at [facility] earlier today where she was diagnosed with the small volume pulmonary embolism, bilateral pulmonary infiltrates, hyponatremia, and generalized weakness. She is now admit maci for further evaluation. 2. The patient is certainly at risk for both metastatic lesions, as well as new Pneumocystis and vir al syndromes in her lungs. She has been on high-dose steroids for her central nervous system metasta ses. She will need to be evaluated for these possibilities. Overall recommendations upon discharge will depend on what we find as far as etiologic agents are concerned. If she has its findings that a re consistent with worsening disease from her adenocarcinoma of the gallbladder, then best supportive care and hospice would be appropriate. On the other hand, if this is related to infectious complica tions, such as Pneumocystis, it would be appropriate to treat that with appropriate antibiotic therap y. One of our major concerns for is deconditioning and physical therapy and occupational therapy dominguez luation will be important. HISTORY OF PRESENT ILLNESS: Please see my assessment. PAST MEDICAL HISTORY: Remarkable for osteoporosis. There is a history of treated tuberculosis. She has hyperlipidemia. She has recent DVT as mentioned and she has a history of leukocytosis. PAST SURGICAL HISTORY: Her previous surgery, includes section and the surgery to diagnose h er adenocarcinoma of the gallbladder. FAMILY HISTORY: Remarkable for osteoporosis and tuberculosis. SOCIAL HISTORY: The patient is . She does not drink. 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 REVIEW OF SYSTEMS: Remarkable for decreased oral intake, weakness. She has no pain. She does not r eport shortness of breath or cough. She has had no significant edema. A 10-system review is otherwi se unremarkable. PHYSICAL EXAMINATION: GENERAL: Reveals a pale, thin woman with alopecia related to her recent radia tion. LUNGS: Show some coarse breath sounds with no rales or rhonchi. CARDIAC: Shows regular rhyt hm. ABDOMEN: Shows active bowel sounds. She has no ascites. No significant tenderness. LOWER EXT REMITIES. Show no significant edema. LABORATORY EXAM: Today shows a white count 11,300 with a hemoglobin of 11.3 and a platelet count of 244,000. Her INR is 3.12. Lactic acid was elevated at 3.6. Sodium is low at 128. Cultures are pen ding. Thank very much for allowing us to participate in the patient's ongoing care. We look forward to ass isting with the management during this hospitalization and beyond. /[id number]/MODL
[2018-12-10] MEDS ORDERED: ALBUMIN 25% 200 ML IV ONE (17:46)
[2018-12-10] MEDS: CETIRIZINE 10 MG TAB PO SCH (18:30)
[2018-12-10] MEDS: RIVAROXABAN 15 MG TAB PO SCH (18:30)
[2018-12-10] MEDS: MELATONIN 3 MG TAB PO SCH (20:28)
[2018-12-10] MEDS: SENNOSIDES 1 TAB PO SCH (20:28)
[2018-12-10] MEDS: NS 1,000 ML IV SCH (20:36)
[2018-12-11] MEDS: NS 1,000 ML IV SCH (03:00)
[2018-12-11 05:14] LABS: PLATELET COUNT 203 10^3/uL (150-400)
[2018-12-11] MEDS: DEXAMETHASONE 4 MG TAB PO SCH (05:27)
[2018-12-11] MEDS: LEVOTHYROXINE 50 MCG TAB PO SCH (05:27)
[2018-12-11] MEDS: RIVAROXABAN 15 MG TAB PO SCH ×2 (05:27→18:09)
[2018-12-11] MEDS: CHOLECALCIFEROL VIT D3 2,000 UNITS TAB/CAP PO SCH (09:32)
[2018-12-11] MEDS: FERROUS SULFATE 325 MG TAB PO SCH (09:32)
[2018-12-11] MEDS: SENNOSIDES 1 TAB PO SCH ×2 (09:32→20:42)
[2018-12-11] MEDS: AZITHROMYCIN 250 MG TAB PO SCH (09:32)
[2018-12-11] MEDS: guaiFENesin 600 MG TAB.ER PO SCH (09:33)
[2018-12-11] MEDS: DOCUSATE SODIUM 100 MG CAP PO SCH (09:33)
--- NOTE | 2018-12-11 11:28 | SOAPPROG ---
SOAP Progress Note Assessment/Plan: Assessment: - pulm infiltrates -requiring O2. More rales today. Positive for rhinovirus. I asked Dr. Cespedes to evaluate her. - Brain mets due to GB CA - MRI pending - GB CA - also needs re-eval of systemic disease. CT ordered. Plan: - continue RX - Dr. Cespedes to evaluate pulmonary status - MRI brain to check for worsening CA - CT A/P to evaluate GB CA status Subjective: 'I'm fine' Objective: Vital Signs Temp Pulse Resp BP Pulse Ox 37.2 C 72 16 116/55 L 92 12/11/18 07:28 12/11/18 07:28 12/11/18 07:28 12/11/18 07:28 12/11/18 07:28 Laboratory Results 12/11/18 04:36 12/11/18 04:36 12/09/18 12/10/18 12/11/18 23:59 23:59 23:59 Intake Total 750 1544 Output Total 700 Balance 50 1544 PT 31.9 SEC (12.0-15.0) H 12/10/18 10:45 INR 3.12 (0.83-1.16) H 12/10/18 10:45 Physical Exam - Physical Exam General Appearance: mild distress Respiratory: crackles (bilateral) Cardiac/Chest: regular rate, rhythm Abdomen: soft Skin: pallor Neuro/Psych: other (she can only answer simple questions with 'stock' answers) ICD10 Worksheet Patient Problems: Problems Problem Status Onset Primary gall bladder adenocarcinoma Acute Pulmonary infiltrate Acute - ICD10 Problem Qualifiers (1) Pulmonary infiltrate (2) Primary gall bladder adenocarcinoma
[2018-12-11] MEDS ORDERED: FUROSEMIDE 20 MG/2 ML VIAL IVP ONE (12:48)
--- NOTE | 2018-12-11 12:54 | HOSPPROG ---
Hospitalist Progress Note Assessment/Plan: 78 yo F w metastatic cholangiocarcinoma here w weakness, AHRF, rhinovirus AHRF: w b/l airpsace disease at risk for pneumocystis may be just volume- has JVD nad cxr worsedned w rising o2 requirement in setting of volume resusc bronch tomorrow stop IVF and lasix now ?bacterial pneumonia: reasonable to treat dex therapy: on taper taper may be responsible for weakness, or at least con tributing slow taper cholangiocarcinoma: has not received chemo xrt for brain mets repeat MRI today proph: scd dispo: inpt code: full, but did discuss risks/benefits of critical care w her and her Subjective: case d/w deven mcnair and ila. cxr w progressive airpspace disease overnight Objective: Vital Signs Temp Pulse Resp BP Pulse Ox 36.8 C 78 16 96/47 L 91 L 12/11/18 12:04 12/11/18 12:04 12/11/18 12:04 12/11/18 12:04 12/11/18 12:04 Laboratory Results 12/11/18 04:36 12/11/18 04:36 12/10/18 12/11/18 12/12/18 05:59 05:59 05:59 Intake Total 750 1544 Output Total 700 Balance 50 1544 PT 31.9 SEC (12.0-15.0) H 12/10/18 10:45 INR 3.12 (0.83-1.16) H 12/10/18 10:45 - Physical Exam Constitutional: no apparent distress, appears nourished Eyes: PERRL, anicteric sclera Ears, Nose, Mouth, Throat: moist mucous membranes, hearing normal Cardiovascular: regular rate and rhythym, no murmur, rub, or gallop Respiratory: no respiratory distress, other (diffuse crackles) Gastrointestinal: normoactive bowel sounds, soft, non-tender abdomen Genitourinary: No mcneill in urethra Skin: warm, normal color Musculoskeletal: No full muscle strength Neurologic: No AAOx3 Psychiatric: No interacting appropriately ICD10 Worksheet Patient Problems: Problems Problem Status Onset Primary gall bladder adenocarcinoma Acute Pulmonary infiltrate Acute
[2018-12-11] MEDS ORDERED: GADOBUTROL 10 ML VIAL IVP ONE (13:34)
--- NOTE | 2018-12-11 13:59 | GCON ---
[f rep st] CONSULTATION LE[employer]IVER CONSULTATION REFERRING PHYSICIAN: Kevon Bishop MD REASON FOR CONSULTATION: Abnormal CT scan. I was asked to see patient by Dr. Kevon Bishop. Ms. Jeffery encinas is an extremely pleasant 78-year-old female with a past medical history including gallbladder ca rcinoma with metastasis, glaucoma, hyperglycemia, hypothyroidism, osteoporosis, vitamin B12 deficienc y and polyneuropathy. She presented to the emergency room and was admitted for worsening weakness. She has a history of cholangiocarcinoma, grade 3 diagnosed in March 2018. This led to surgical resecti on of the gallbladder. Approximately 1 month ago, she finished 10 days of whole-brain radiation, and she is on dexamethasone. In discussion, patient states, with the exception of breathlessness, she f eels reasonably well. She is very weak. She admits to a cough that is distinctly nonproductive. Th ere is no chest pain, pleuritic-type chest pain or angina equivalent. There is no fever or night swe ats. REVIEW OF SYSTEMS: A 10-point review of systems was performed and negative, except for what is liste d in HPI. PAST MEDICAL HISTORY: Again, significant for cholangiocarcinoma with metastasis, glaucoma, hyperchol esteremia, hypothyroidism, polyneuropathy, vitamin B12 deficiency. FAMILY HISTORY: Noncontributory. SOCIAL HISTORY: No history of tobacco use. No history of alcohol use. She resides with her . 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 OBJECTIVE: VITAL SIGNS: On physical exam, blood pressure is 96/47, pulse 78, respirations 16, tempe rature 36.8. Oxygen saturation 91% on 8 liters simple mask. GENERAL: She is a thin, elderly female who is resting comfortably on 10 liters simple OxyMask. HEENT: Eyes BARBARA, EOMI. Throat shows no e rythema . NECK: Supple. There is no cervical adenopathy. CARDIAC: Heart is regular rat e and rhythm without murmurs, rubs, gallops. LUNGS: Diminished breath sounds. A few bibasilar crac kles but no wheeze. ABDOMEN: Soft, nontender. Bowel sounds are present in all 4 quadrants. EXTREM ITIES: No clubbing, cyanosis or edema. LABORATORIES: White count is 9.8, hemoglobin 9.3, hematocrit 29, platelet count is 203. Sodium 133, potassium 3.7, chloride 108, CO2 is 20, BUN 13, creatinine 0.6, glucose is 87. Urinalysis is negati ve. IMAGING: Chest x-ray shows diffuse infiltrates with some evidence of ground-glass opacities. CT sca n of the chest dated 12/10/2018 reveals segmental and subsegmental right lower lobe pulmonary emboli. There are ground-glass opacifications throughout both lungs. IMPRESSION: 1. Metastatic cholangiocarcinoma. 2. Abnormal chest x-ray and computed tomography with ground-glass opacifications. Query whether thi s is infectious, such as Pneumocystis. 3. Osteoporosis. 4. A history of treated tuberculosis. 5. Hyperlipidemia. 6. Acute respiratory failure with high oxygen requirements. RECOMMENDATIONS: 1. Will perform fiberoptic bronchoscopy tomorrow. 2. Given her high oxygen requirements, will engage Anesthesia to assist. Thank you very much for allowing me to participate in the care of this interesting patient. Will fol low along with you. /[id number]/MODL
[2018-12-11] MEDS ORDERED: IOHEXOL 300 mgI/ML (OMNIPAQUE) 150 ML BTL IV ONE (15:59)
[2018-12-11] MEDS: CETIRIZINE 10 MG TAB PO SCH (18:09)
[2018-12-11] MEDS: MELATONIN 3 MG TAB PO SCH (20:42)
[2018-12-12] MEDS ORDERED: FUROSEMIDE 20 MG/2 ML VIAL IVP ONE (02:53)
[2018-12-12 05:49] LABS: PLATELET COUNT 258 10^3/uL (150-400)
[2018-12-12] MEDS: RIVAROXABAN 15 MG TAB PO SCH ×2 (05:59→18:50)
[2018-12-12] MEDS: DEXAMETHASONE 4 MG TAB PO SCH (05:59)
[2018-12-12] MEDS: LEVOTHYROXINE 50 MCG TAB PO SCH (05:59)
[2018-12-12] MEDS: AZITHROMYCIN 250 MG TAB PO SCH (08:52)
[2018-12-12] MEDS ORDERED: LIDOCAINE 1% 300 MG/30 ML SDV ONE (11:38)
[2018-12-12] MEDS ORDERED: ALBUTEROL 3 ML DEYVIAL ONE (11:38)
[2018-12-12] MEDS ORDERED: EPINEPHrine 1 MG/ML INJ ONE (11:39)
[2018-12-12] MEDS ORDERED: ALBUTEROL 3 ML DEYVIAL IH ONE (12:20)
[2018-12-12] MEDS ORDERED: LR 1,000 ML IV ONE (12:20)
--- NOTE | 2018-12-12 12:34 | SOAPPROG ---
SOAP Progress Note Assessment/Plan: Assessment: - pulm infiltrates -requiring 11L O2. CXR infiltrates unchanged. She is to have a bronchoscopy this afternoon. I appreciate the input from Dr. Cespedes. - Brain mets due to GB CA - MRI stable to improved compared to the most recent MRI - GB CA - No evidence of new or worsening disease below the diaphragm. Her major life threatening issue is her pulmonary infiltrates and worsening respiratory failure. This could be related to infection (viral, pneumocystis) vs. lymphangitic CA vs. fluid overload. Plan: - continue RX - Dr. Cespedes to do a bronchoscopy today -will discuss further with patient and family as information comes in. Subjective: no new complaints but not very verbal at the moment Objective: Vital Signs Temp Pulse Resp BP Pulse Ox 36.3 C 70 16 98/53 L 93 12/12/18 11:46 12/12/18 11:46 12/12/18 11:46 12/12/18 11:46 12/12/18 11:46 Laboratory Results 12/12/18 04:56 12/12/18 04:56 12/10/18 12/11/18 12/12/18 23:59 23:59 23:59 Intake Total 750 2644 Output Total 700 850 200 Balance 50 1794 -200 PT 31.9 SEC (12.0-15.0) H 12/10/18 10:45 INR 3.12 (0.83-1.16) H 12/10/18 10:45 Physical Exam - Physical Exam General Appearance: moderate distress (on her way to bronchoscopy) ICD10 Worksheet Patient Problems: Problems Problem Status Onset Primary gall bladder adenocarcinoma Acute Pulmonary infiltrate Acute - ICD10 Problem Qualifiers (1) Pulmonary infiltrate (2) Primary gall bladder adenocarcinoma
[2018-12-12] MEDS ORDERED: PROPOFOL 200 MG/20 ML VIAL ONE (12:44)
[2018-12-12] MEDS ORDERED: MIDAZOLAM 2 MG/2 ML VIAL ONE (12:44)
[2018-12-12] MEDS ORDERED: ALBUMIN 5% 250 ML BOTTLE IV ONE (12:45)
[2018-12-12] MEDS ORDERED: DEXMEDETOMIDINE HCL 200 MCG in NS 50 ML IV ONE (13:00)
--- NOTE | 2018-12-12 13:28 | BVPULMO ---
[facility] Surgical Services- Pulmonology Patient Name: Liza Nguyen Procedure Date: 12/12/2018 1:07 PM Patient Type: Inpatient Attending MD/ER Physician: Jerome Cespedes MD Procedure: Bronchoscopy Indications: Bilateral infiltrate Providers: Jerome Cespedes MD Medicines: Monitored Anesthesia Care Complications: No immediate complications Procedure: After informed consent, a time out was performed. N95 masks were worn, and the procedure was done in a negative pressure room. The patient was given appropria te topical anesthesia and intravenous sedation. The fiberopic bronchoscope was pas sed via a bite block orally into the larynx and subsequently into the lower trachea bronchial tree. Throughout the procedure, the patient's blood pressure, pulse, and oxygen saturations were monitored continuously. The Bronchoscope (Video) was introduced through the mouth and advanced to the tracheobronchial tree. The procedure was accomplished without difficulty. The patient tolerated the proced ure well. The total duration of the procedure was 15 minutes. Findings: The oropharynx appears normal. The larynx appears normal. The vocal cords appea r normal. The subglottic space is normal. The trachea is of normal caliber. The c marco is sharp. The tracheobronchial tree was examined to at least the first subsegme ntal level. Bronchial mucosa and anatomy are normal; there are no endobronchial lesi ons, and no secretions. Bronchoalveolar lavage was performed in the right middle lobe and in the right lower lobe of the lung and sent for cell count, bacterial culture, viral smears & cul ture, fungal & AFB analysis and cytology for immunocompromised host protocol. 60 mL o f fluid were instilled. 40 mL were returned. The return was milky. There were no mucoid plugs in the return fluid. Post Op Diagnosis: - Bilateral infiltrate - The airway examination was normal. - Bronchoalveolar lavage was performed. Estimated Blood Loss: Estimated blood loss: none. Recommendation: - Await BAL results. - Await BAL results. Attending Participation: I personally performed the entire procedure. Jerome Cespedes MD Jerome Cespedes MD 12/12/2018 1:27:35 PM This report has been signed electronicallyThomas MD Rubina Number of Addenda: 0 Note Initiated On: 12/12/2018 1:07 PM [email or web address]
--- NOTE | 2018-12-12 13:44 | SOAPPROG ---
SOAP Progress Note Assessment/Plan: Assessment/plan: * Metastatic cholangiocarcinoma * Brain Mets * Diffuse infiltrates-unclear etiology. Query Pneumocystis carinii pneumonia -fiberoptic bronchoscopy today * Acute respiratory failure-still on high amounts of FiO2 Subjective: Still breathless. Complains of cough. Objective: Vital Signs Temp Pulse Resp BP Pulse Ox 36.3 C 70 16 98/53 L 93 12/12/18 11:46 12/12/18 11:46 12/12/18 11:46 12/12/18 11:46 12/12/18 11:46 Laboratory Results 12/12/18 04:56 12/12/18 04:56 12/11/18 12/12/18 12/13/18 05:59 05:59 05:59 Intake Total 750 2644 Output Total 700 1050 Balance 50 1594 PT 31.9 SEC (12.0-15.0) H 12/10/18 10:45 INR 3.12 (0.83-1.16) H 12/10/18 10:45 - Time Spent With Patient Time Spent With Patient: 25 min of time spent with patient, over 1/2 involved with coordination of care or counseling. Case discussed with hospitalist Physical Exam - Physical Exam General Appearance: alert, mild distress EENT: PERRL/EOMI Neck: non-tender, full range of motion Respiratory: respiratory distress, crackles (Scattered), No wheezing Cardiac/Chest: normal peripheral pulses, regular rate, rhythm Peripheral Pulses: 2+: carotid (R), carotid (L), femoral (R), femoral (L), dorsalis-pedis (R), dorsalis-pedis (L) Abdomen: normal bowel sounds, non-tender, soft Pelvic Exam: deferred Rectal: deferred Skin: normal color, warm/dry Extremities: normal range of motion, non-tender, normal inspection, normal capillary refill Neuro/Psych: alert ICD10 Worksheet Patient Problems: Problems Problem Status Onset Primary gall bladder adenocarcinoma Acute Pulmonary infiltrate Acute
[2018-12-12] MEDS ORDERED: NALOXONE HCL 0.4 MG/ML INJ IVP PRN (13:46)
--- NOTE | 2018-12-12 13:46 | PDANEPAE ---
ANE Past Medical History - Cardiovascular History Hx Hypertension: No Hx Arrhythmias: No Hx Chest Pain: No Hx Coronary Artery / Peripheral Vascular Disease: No Hx CHF / Valvular Disease: No Hx Palpitations: No Cardiovascular History Comment: HYPERLIPIDEMIA - Pulmonary History Hx COPD: No Hx Asthma/Reactive Airway Disease: No Hx Recent Upper Respiratory Infection: No Hx Oxygen in Use at Home: No Hx Sleep Apnea: No Sleep Apnea Screening Result - Last Documented: Negative - Neurologic History Hx Cerebrovascular Accident: No Hx Seizures: No Hx Dementia: No Neurologic History Comment: PERIPHERAL NEUROPATHY - Endocrine History Hx Diabetes: No Endocrine History Comment: HYPOTHYROIDISM - Renal History Hx Renal Disorders: No - Liver History Hx Hepatic Disorders: No - Neurological & Psychiatric Hx Hx Neurological and Psychiatric Disorders: No - Cancer History Hx Cancer: No - Congenital Disorder History Hx Congenital Disorders: No - GI History Hx Gastrointestinal Disorders: Yes Gastrointestinal History Comment: GOES BETWEEN DIARRHEA OR CONSTIPATION - Other Health History Other Health History: LEUKOCYTOSIS - Chronic Pain History Chronic Pain: No - Surgical History Prior Surgeries: X2. TUMOR REMOVED FROM NECK 2006. CATARACT SURGERY ANE Review of Systems Review of Systems: ANE Patient History - Allergies Allergies/Adverse Reactions: No Known Allergies Allergy (Verified 12/10/18 10:09) - Home Medications Home Medications: Levothyroxine [Synthroid 50 mcg (*)] 50 mcg PO DAILY06 #0 08/17/16 [Last Taken 12/10/18] Ferrous Sulfate [Ferrous Sulf 325 MG (*)] 325 mg PO DAILY #0 03/30/18 [Last Taken 12/10/18] Cholecalciferol Vit D3 [Vitamin D3 (*)] 5,000 units PO DAILY 12/10/18 [Last Taken 12/10/18] Dexamethasone [Decadron 4 MG (*)] 4 mg PO DAILY06 12/10/18 [Last Taken 12/10/18] Docusate Sodium [Colace 100 MG (*)] 100 mg PO DAILY 12/10/18 [Last Taken ] Fexofenadine HCl [Erma Allergy] 180 mg PO DAILY18 12/10/18 [Last Taken ] Rivaroxaban [Xarelto 15mg (*)] 15 mg PO BID@06,18 12/10/18 [Last Taken 12/10/18] Sennosides [Senna Lax] 8.6 mg PO BID 12/10/18 [Last Taken 12/10/18] guaiFENesin [Mucinex 600 MG (*)] 600 mg PO DAILY 12/10/18 [Last Taken 12/10/18] - NPO status NPO Since - Liquids (Date): 12/12/18 NPO Since - Liquids (Time): 08:52 NPO Since - Solids (Date): 12/12/18 NPO Since - Solids (Time): 06:55 - Smoking Hx Smoking Status: Never smoked - Family Anes Hx Family Hx Anesthesia Complications: NONE ANE Labs/Vital Signs - Labs Result Diagrams: 12/12/18 04:56 12/12/18 04:56 - Vital Signs Blood Pressure: 98/53 Heart Rate: 70 Respiratory Rate: 16 O2 Sat (%): 93 Height: 165.1 cm Weight: 52.163 kg ANE Physical Exam - Airway Neck exam: FROM Mouth exam: normal dental/mouth exam - Pulmonary Pulmonary: reduced air movement, expiratory wheeze, respiratory distress, dullness to percussion - Cardiovascular Cardiovascular: regular rate and rhythym - ASA Status ASA Status: IV ANE Anesthesia Plan Anesthesia Plan: MAC
--- NOTE | 2018-12-12 13:47 | POSTANESTH ---
Post Anesthetic Evaluation Cardiovascular Status: Normal, Stable, Similar to Pre-Op Cond Respiratory Status: Similar to Pre-op Cond. Level of Consciousness/Mental Status: Mildly Sleepy, Arousable Pain Control: Adequate, Prn Tx Ordered Nausea/Vomiting Control: Adequate, Prn Tx Ordered Complications Possibly Related to Anesthesia: None Noted
--- NOTE | 2018-12-12 15:32 | HOSPPROG ---
Hospitalist Progress Note Assessment/Plan: 78 yo F w metastatic cholangiocarcinoma here w weakness, AHRF, rhinovirus AHRF: w b/l airpsace disease at risk for pneumocystis has received lasix X 2 w no real improvement bronch unrevealing but micro pending 1. add pulse steroids 2. no further diuresis 3. ID to see ?bacterial pneumonia: reasonable to treat as CAP dex therapy: on taper taper may be responsible for weakness, or at least con tributing slow taper cholangiocarcinoma: has not received chemo xrt for brain mets repeat MRI today proph: scd dispo: inpt code: full had prolonged discussion w family sounds like they are leaning towards DNR, but family discussions ongoing Subjective: case d/w dr thorpe. cxr unchanged w lasix Objective: Vital Signs Temp Pulse Resp BP Pulse Ox 36.2 C 70 16 82/46 L 98 12/12/18 14:37 12/12/18 14:37 12/12/18 14:37 12/12/18 14:37 12/12/18 14:37 Laboratory Results 12/12/18 04:56 12/12/18 04:56 12/11/18 12/12/18 12/13/18 05:59 05:59 05:59 Intake Total 750 2644 200 Output Total 700 1050 0 Balance 50 1594 200 PT 31.9 SEC (12.0-15.0) H 12/10/18 10:45 INR 3.12 (0.83-1.16) H 12/10/18 10:45 - Physical Exam Constitutional: no apparent distress, appears nourished Eyes: PERRL, anicteric sclera Ears, Nose, Mouth, Throat: moist mucous membranes, hearing normal Cardiovascular: regular rate and rhythym, no murmur, rub, or gallop Respiratory: no respiratory distress, other (good air movement, b/l crackles. no wheeze) Gastrointestinal: normoactive bowel sounds, soft, non-tender abdomen Genitourinary: No mcneill in urethra Skin: warm, normal color Musculoskeletal: full muscle strength, no muscle tenderness Neurologic: AAOx3 Psychiatric: interacting appropriately Lymph, Heme, Immunologic: no cervical LAD ICD10 Worksheet Patient Problems: Problems Problem Status Onset Primary gall bladder adenocarcinoma Acute Pulmonary infiltrate Acute
[2018-12-12] MEDS: SENNOSIDES 1 TAB PO SCH ×2 (16:56→21:01)
[2018-12-12] MEDS: guaiFENesin 600 MG TAB.ER PO SCH (16:56)
[2018-12-12] MEDS: FERROUS SULFATE 325 MG TAB PO SCH (16:57)
[2018-12-12] MEDS: CHOLECALCIFEROL VIT D3 2,000 UNITS TAB/CAP PO SCH (16:57)
[2018-12-12] MEDS: DOCUSATE SODIUM 100 MG CAP PO SCH (16:57)
--- NOTE | 2018-12-12 17:01 | PDCONSULT ---
[employer] Note: Infectious Diseases Consult Note Impression: 78-year-old woman with cholangiocarcinoma complicated by metastatic lesions to the brain treated with radiation and dexamethasone is with hypoxia in the setting of diffuse interstitial infiltrates in her lungs. Worsening dyspnea and increasing oxygen requirement as her dexamethasone dose had been decreased suggestive of Pneumocystis pneumonia as the underlying etiology. Rhinovirus certainly can cause lower respiratory tract infections and would be expected to have a diffuse interstitial pattern including ground- glass opacities, there is no way to definitively determine if for enterovirus of bone is responsible for her clinical syndrome. Is prudent to empirically treat for Pneumocystis while we await bronchoscopy testing. Her history of treated active tuberculosis in the 1970s is not likely playing a role in this setting as reactivation of tuberculosis with corticosteroids tends to present as disseminated disease with a fairly typical miliary pattern within the lung parenchyma, not diffuse ground-glass opacities presenting as hypoxia. Her gives a history of Histoplasma infection while residing in [place] in the 80s which did not affect his . Similar to tuberculosis would not expect Histoplasma to present with diffuse ground-glass opacities without nodularity and evidence of systemic spread. 1. Acute hypoxia; pneumocystis pneumonia possible with concomitant rhino virus pneumonia 2. 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 Lymphopenia Plan: 1. Start Bactrim 130 mg trimethoprim component Q 6 hr IV; plan to switch to oral when patient more awake and able to take p.o. 2. Continue ceftriaxone and azithromycin 3. Will follow BAL testing 4. Discussed potential side effects of Bactrim with patient's at bedside which include antibiotic associated diarrhea, rash, hyperkalemia, increased creatinine, C diff colitis Sean Meza MD Infectious Diseases Chief Complaint: Weakness and shortness of breath Requesting Provider: Dr. Braden Reason for Referral: Consultation was requested by Dr. Braden regarding antimicrobial management. HPI: 78-year-old woman who was brought to the hospital due to the acute onset of weakness and increasing shortness of breath. History is obtained from the at bedside as the patient is somnolent and unable to participate in the history. She was diagnosed with metastatic carcinoma to the brain and underwent total brain radiation in late October of 2018. Around the same time she was started on dexamethasone to decrease swelling which was initially periodically dosing but became daily dosing by early November. She reached a peak dose of dexamethasone of 12 mg per day which she took for nearly 2 weeks before being tapered to 8 mg per day than down to 4. It was approximately 2 weeks prior to admission, which seems to correlate with a decreasing dose to 8 mg per day, that she 1st started having issues with shortness of breath particularly with getting out of bed and ambulating to the restroom. She was brought to the hospital on the day of admission as she was having more focal weaknesses in her extremities which also correlated with generalized weakness. Initially upon admission her chest x-ray had relatively minimal diffuse interstitial findings, this increased on re-evaluation after oxygen requirements went up in kind. She underwent bronchoscopy with BAL today and remains somnolent after the procedure. reports that she was not having fevers, chills, or night sweats while at home prior to admission. She had a small rash on extremity that have been chronic but otherwise no rashes. They do not have pets in the home and they have not visited friends or family who have pets. They are not near farm land, but do live [place] [facility]. They have not had any close contact with wild animals, farm animals, or domestic animals. They have not been out on walks with a would come into contact with prairie dogs. The last travel the Ms. Nguyen has gone was November of 2017. Travel history: Currently lives in [place] in a house. Has lived in [place] for the past 12 years. Prior to moving to [place] lived in [facility] for approximately 10 years. Lived in [place] a in the 70s and 80s. 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 ROS: Unable to obtain due to somnolence Physical Exam: VS: Reviewed Gen: No acute distress; tachypnea with exogenous oxygen via face mask Eyes: No conjunctival injection; No scleral icterus HENT: No gross deformities Neck: No lymphadenopathy Pulm: Breath sounds clear to the bases bilaterally; No wheeze, rhonchi, or rales CV: Normal S1 and S2; Regular rate and rhythm; No murmurs, rubs, or gallops; No lower extremity edema Abd: Not distended; hypo-active bowel sounds; Soft Skin: A full skin exam including exposed bilateral upper extremities, bilateral lower extremities to the knees, face, neck, abdomen, chest, and back performed; Skin intact, warm, with no rash MSK: Joints without erythema or edema Ext: No clubbing or cyanosis Neuro: Somnolent Psych: Unable to obtain due to somnolence Labs/Imaging: All microbiology testing (culture and non-culture) reviewed in the medical record. Personally reviewed and interpreted the images of the following radiographs: Chest CT from admission showing diffuse ground-glass opacities, dense in areas. Medications Generic Name Dose Route Start Last Admin Trade Name Freq PRN Reason Stop Dose Admin Azithromycin 250 mg 12/11/18 09:00 12/12/18 08:52 Zithromax PO 01/10/19 08:59 250 mg DAILY [facility] Protocol Ceftriaxone Sodium/Dextrose 50 mls @ 100 mls/hr 12/11/18 09:00 12/12/18 09:24 Rocephin 1 Gm (Premix) IV 01/10/19 08:59 50 mls DAILY [facility] Protocol Dexamethasone 4 mg 12/11/18 06:00 12/12/18 05:59 Decadron PO 06/09/19 05[facility]im[facility]rim/Sulfamethoxazole 258.125 mls @ 250 mls/hr 12/12/18 17:00 130 mg/ Dextrose IV 01/11/19 16:59 Q6HRS [facility] Protocol Microbiology 12/10/18 13:15 Nasal, Sinus - Swab Respiratory Panel (PCR) - Final Human Rhinovirus/Enterovirus 12/10/18 12:58 Blood Blood Culture - Preliminary 12/10/18 12:16 Blood Blood Culture - Preliminary Laboratory Tests 12/11/18 12/11/18 12/12/18 04:36 04:36 04:56 WBC 9.87 H Hgb 9.3 L Plt Count 203 Creatinine 0.6 0.6 12/12/18 04:56 WBC 10.21 H Hgb 10.8 L Plt Count 258 Creatinine Ongoing monitoring for antimicrobial toxicity with: CBC, BMP. Counseling provided included the microbiology of rhino virus pneumonia, Pneumocystis pneumonia, expected time to resolution, natural history without treatment, and side effects of treatment.
[2018-12-12] MEDS: methylPREDNISolone SOD SUCC 125 MG/2 ML VIAL IVP SCH (17:08)
[2018-12-12] MEDS: TMP IV SCH ×2 (18:50→22:11)
[2018-12-12] MEDS: D5W IV SCH ×2 (18:50→22:11)
[2018-12-12] MEDS: CETIRIZINE 10 MG TAB PO SCH (18:50)
[2018-12-12] MEDS: SULFAMETHOX IV SCH ×2 (18:50→22:11)
[2018-12-12] MEDS: MELATONIN 3 MG TAB PO SCH (21:01)
[2018-12-13] MEDS: methylPREDNISolone SOD SUCC 125 MG/2 ML VIAL IVP SCH ×4 (00:09→19:31)
[2018-12-13] MEDS: TMP IV SCH ×3 (04:02→19:46)
[2018-12-13] MEDS: SULFAMETHOX IV SCH ×3 (04:02→19:46)
[2018-12-13] MEDS: D5W IV SCH ×3 (04:02→19:46)
[2018-12-13] MEDS: DEXAMETHASONE 4 MG TAB PO SCH (06:18)
[2018-12-13] MEDS: LEVOTHYROXINE 50 MCG TAB PO SCH (06:18)
[2018-12-13] MEDS: RIVAROXABAN 15 MG TAB PO SCH ×2 (06:19→19:33)
[2018-12-13] MEDS: CHOLECALCIFEROL VIT D3 2,000 UNITS TAB/CAP PO SCH (10:03)
[2018-12-13] MEDS: SENNOSIDES 1 TAB PO SCH ×2 (10:05→21:55)
[2018-12-13] MEDS: DOCUSATE SODIUM 100 MG CAP PO SCH (10:05)
[2018-12-13] MEDS: FERROUS SULFATE 325 MG TAB PO SCH (10:05)
[2018-12-13] MEDS: POTASSIUM CL 20 MEQ PKT PO SCH ×2 (10:06→21:55)
[2018-12-13] MEDS: guaiFENesin 600 MG TAB.ER PO SCH (10:06)
--- NOTE | 2018-12-13 10:17 | PCMIDPN ---
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 Radiographically the pattern would be consistent with Pneumocystis pneumonia, with her corticosteroids risk factor, and a clinical syndrome with hypoxia as a primary manifestation consistent with this diagnosis. With rhinovirus present nasopharyngeal sample is quite reasonable that this is also causing lower respiratory tract infection manifesting as diffuse ground-glass opacities and hypoxia. There is no definitive way to prove a single pathogens present or a polymicrobial process. Elevated LDH can be suggestive of Pneumocystis pneumonia particularly if positive beta D glucan is also found, which is in process as a send out. Continue empiric therapy directed towards Pneumocystis with Bactrim, which she is tolerating well. Continue with IV Bactrim for the 1st couple of days at least to ensure adequate distribution to the lungs. It is also feasible that she has diffuse lymphatic spread of her metastatic cancer. 1. Acute hypoxia; pneumocystis pneumonia possible concomitant rhino virus pneumonia, improved 2. 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 Lymphopenia Plan: 1. Continue Bactrim 130 mg trimethoprim component 6 hr IV 2. Continue ceftriaxone 3. Follow BAL testing and send out beta D glucan from serum 4. Discussed side effects of Bactrim with patient's son who is at bedside including antibiotic associated diarrhea, rash, hyperkalemia, increased creatinine, C diff colitis Sean Meza MD Infectious Diseases 12/13/18 10:20 12/13/18 10:25 Subjective: No documented fever. Denies diarrhea, nausea, rash. Awake and alert but minimally interactive. Objective: Vital Signs Temp Pulse Resp BP Pulse Ox 35.9 C L 51 L 16 89/47 L 96 12/13/18 07:24 12/13/18 07:24 12/13/18 07:24 12/13/18 07:24 12/13/18 07:24 Microbiology 12/12/18 13:17 Gram Stain - Final Bronchial Alveolar Lavage - Right Lobe Laboratory Results 12/12/18 04:56 12/13/18 04:56 12/12/18 12/13/18 12/14/18 05:59 05:59 05:59 Intake Total 2644 350 Output Total 1050 225 Balance 1594 125 Medications Generic Name Dose Route Start Last Admin Trade Name Freq PRN Reason Stop Dose Admin Ceftriaxone Sodium/Dextrose 50 mls @ 100 mls/hr 12/11/18 09:00 12/13/18 10:00 Rocephin 1 Gm (Premix) IV 01/10/19 08:59 50 mls DAILY SCOTT Protocol Trimethoprim/Sulfamethoxazole 258.125 mls @ 250 mls/hr 12/13/18 04:00 04:02 130 mg/ Dextrose IV 01/12/19 03:59 258.125 mls Q6H SCOTT Protocol Discontinued Medications Generic Name Dose Route Start Last Admin Trade Name Freq PRN Reason Stop Dose Admin Trimethoprim/Sulfamethoxazole 258.125 mls @ 250 mls/hr 12/12/18 17:00 22:11 130 mg/ Dextrose IV 01/11/19 16:59 258.125 mls Q6HRS SCOTT Protocol Azithromycin 250 mg 12/11/18 09:00 12/12/18 08:52 Zithromax PO 01/10/19 08:59 250 mg DAILY SCOTT Protocol Laboratory Tests 12/11/18 12/12/18 12/12/18 04:36 04:56 04:56 WBC 9.87 H 10.21 H Hgb 9.3 L 10.8 L Absolute Neuts (auto) 9.31 H 9.45 H Absolute Lymphs (auto) 0.42 L 0.55 L Potassium 3.4 L Creatinine 0.6 AST ALT Lactate Dehydrogenase 12/13/18 04:56 WBC Hgb Absolute Neuts (auto) Absolute Lymphs (auto) Potassium 2.8 L Creatinine 0.5 L AST 59 H ALT 43 Lactate Dehydrogenase 1280 H - Physical Exam General Appearance: no apparent distress, non-toxic EENT: No scleral icterus Respiratory: lungs clear, normal breath sounds, No respiratory distress, No crackles, No wheezing Neck: supple Cardiac/Chest: regular rate, rhythm, No bradycardia, No tachycardia, No diastolic murmur, No systolic murmur Extremities: No erythema Abdomen: non-tender, soft, No distended, No guarding Skin: No rash Neuro/Psych: other (Awake and alert; interactive with yes no answers to questions, remains confused) - Time Spent With Patient Time Spent with Patient: greater than 35 minutes Time Spent with Patient: Greater than 35 minutes spent on this patients care, greater than 50% of time spent counseling, educating, and coordinating care regarding the above mentioned plan. ICD10 Worksheet Patient Problems: Problems Problem Status Onset Primary gall bladder adenocarcinoma Acute Pulmonary infiltrate Acute chronic disease mgmt/transitional care Acute
--- NOTE | 2018-12-13 14:06 | SOAPPROG ---
SOAP Progress Note Assessment/Plan: Assessment/plan: * Metastatic cholangiocarcinoma * Brain Mets * Diffuse infiltrates-unclear etiology. Query Pneumocystis carinii pneumonia -fiberoptic bronchoscopy rib results pending -begun on Bactrim per Infectious Disease * Acute respiratory failure-still on high amounts of FiO2 Subjective: Resting comfortably. Patient states breathing a little easier. Still very weak. Objective: Vital Signs Temp Pulse Resp BP Pulse Ox 36.1 C 74 16 98/50 L 91 L 12/13/18 12:01 12/13/18 12:01 12/13/18 12:01 12/13/18 12:01 12/13/18 12:01 Microbiology 12/12/18 13:17 Mycobacterial Smear (THERESA) - Final Bronchial Alveolar Lavage - Right Lobe Mycobacterium tuberculosis DNA (PCR - Final Pcr Negative For M. Tb Complex 12/12/18 13:17 Gram Stain - Final Bronchial Alveolar Lavage - Right Lobe Laboratory Results 12/12/18 04:56 12/13/18 04:56 12/12/18 12/13/18 12/14/18 05:59 05:59 05:59 Intake Total 2644 350 Output Total 1050 225 Balance 1594 125 PT 31.9 SEC (12.0-15.0) H 12/10/18 10:45 INR 3.12 (0.83-1.16) H 12/10/18 10:45 - Time Spent With Patient Time Spent With Patient: 25 min of time spent with patient, over 1/2 involved with coordination of care counseling Case discussed with Oncology and hospitalist Physical Exam - Physical Exam General Appearance: alert, no apparent distress EENT: PERRL/EOMI Neck: non-tender Respiratory: chest non-tender, crackles (Bibasilar), No respiratory distress, No wheezing Cardiac/Chest: normal peripheral pulses, regular rate, rhythm Abdomen: normal bowel sounds, non-tender, soft Pelvic Exam: deferred Rectal: deferred Skin: normal color, warm/dry Extremities: non-tender Neuro/Psych: alert, normal mood/affect ICD10 Worksheet Patient Problems: Problems Problem Status Onset Primary gall bladder adenocarcinoma Acute Pulmonary infiltrate Acute chronic disease mgmt/transitional care Acute
--- NOTE | 2018-12-13 14:36 | HOSPPROG ---
Hospitalist Progress Note Assessment/Plan: 78 yo F w metastatic cholangiocarcinoma here w weakness, AHRF, rhinovirus AHRF: w b/l airpsace disease at risk for pneumocystis has received lasix X 2 w no real improvement bronch unrevealing but micro pending 1. add pulse steroids 2. no further diuresis 3. treating for pcp, cap ?bacterial pneumonia: reasonable to treat as CAP dex therapy: on taper taper may be responsible for weakness, or at least con tributing slow taper cholangiocarcinoma: has not received chemo xrt for brain mets proph: scd dispo: inpt code: now dnr plan of care: mixed messages from but today he clearly stated he wishes to treat this pneumonia "aggressively" and re eval after 7 days or so Subjective: case d/w dr mcnair, dr thorpe. extended discussion w patient, son Objective: Vital Signs Temp Pulse Resp BP Pulse Ox 36.1 C 74 16 98/50 L 91 L 12/13/18 12:01 12/13/18 12:01 12/13/18 12:01 12/13/18 12:01 12/13/18 12:01 Microbiology 12/12/18 13:17 Gram Stain - Final Bronchial Alveolar Lavage - Right Lobe 12/12/18 13:17 Mycobacterial Smear (THERESA) - Final Bronchial Alveolar Lavage - Right Lobe Mycobacterium tuberculosis DNA (PCR - Final Pcr Negative For M. Tb Complex Laboratory Results 12/12/18 04:56 12/13/18 04:56 12/12/18 12/13/18 12/14/18 05:59 05:59 05:59 Intake Total 2644 350 Output Total 1050 225 Balance 1594 125 PT 31.9 SEC (12.0-15.0) H 12/10/18 10:45 INR 3.12 (0.83-1.16) H 12/10/18 10:45 - Physical Exam Constitutional: no apparent distress, appears nourished Eyes: PERRL, anicteric sclera Ears, Nose, Mouth, Throat: moist mucous membranes, hearing normal Cardiovascular: regular rate and rhythym, no murmur, rub, or gallop Respiratory: no respiratory distress, other (diffuse crackles, improved from yesterday) Gastrointestinal: normoactive bowel sounds, soft, non-tender abdomen Genitourinary: no bladder fullness, No mcneill in urethra Skin: warm, normal color Musculoskeletal: no muscle tenderness, No full muscle strength Neurologic: AAOx3, sensation intact bilaterally Psychiatric: interacting appropriately Lymph, Heme, Immunologic: no cervical LAD ICD10 Worksheet Patient Problems: Problems Problem Status Onset Primary gall bladder adenocarcinoma Acute Pulmonary infiltrate Acute chronic disease mgmt/transitional care Acute
--- NOTE | 2018-12-13 14:46 | SOAPPROG ---
SOAP Progress Note Assessment/Plan: Assessment: - pulm infiltrates -requiring 8L O2. CXR will be repeated tomorrow. Bronchoscopy results negative so far. - Brain mets due to GB CA - MRI stable to improved compared to the most recent MRI - GB CA - No evidence of new or worsening disease below the diaphragm. Her major life threatening issue is her pulmonary infiltrates and respiratory failure. This could be related to infection (viral, pneumocystis) vs. lymphangitic CA vs. fluid overload. Plan: - continue empiric RX - check bronch results as they become available -will discuss further with patient and family as information comes in. Subjective: 'I feel like I want to eat and move' Objective: Vital Signs Temp Pulse Resp BP Pulse Ox 36.1 C 74 16 98/50 L 91 L 12/13/18 12:01 12/13/18 12:01 12/13/18 12:01 12/13/18 12:01 12/13/18 12:01 Microbiology 12/12/18 13:17 Gram Stain - Final Bronchial Alveolar Lavage - Right Lobe 12/12/18 13:17 Mycobacterial Smear (THERESA) - Final Bronchial Alveolar Lavage - Right Lobe Mycobacterium tuberculosis DNA (PCR - Final Pcr Negative For M. Tb Complex Laboratory Results 12/12/18 04:56 12/13/18 04:56 12/11/18 12/12/18 12/13/18 23:59 23:59 23:59 Intake Total 2644 350 Output Total 850 425 Balance 1794 -75 PT 31.9 SEC (12.0-15.0) H 12/10/18 10:45 INR 3.12 (0.83-1.16) H 12/10/18 10:45 Physical Exam - Physical Exam General Appearance: moderate distress Respiratory: crackles (bilateral) Cardiac/Chest: regular rate, rhythm Abdomen: non-tender, soft Skin: warm/dry Neuro/Psych: alert ICD10 Worksheet Patient Problems: Problems Problem Status Onset Primary gall bladder adenocarcinoma Acute Pulmonary infiltrate Acute chronic disease mgmt/transitional care Acute - ICD10 Problem Qualifiers (1) Pulmonary infiltrate (2) Primary gall bladder adenocarcinoma
--- NOTE | 2018-12-13 14:52 | ASMTCMCOM ---
CM Note CM Note Notes: [facility] and [facility] met w patient and her and son today (she is already followed by [facility]). They are not ready to transition to hospice; they will continue to treat her PNA. She had a bronchoscopy today. has made it clear that he wants to take patient home, so we may need to offer additional resources closer to d/c. He is working on obtaining a hospital bed. Case Management will follow. Current CM Discharge plan: TBD; patient is current with [facility] Date Signed: 12/13/2018 02:52 PM Electronically Signed By:Marcie Zaragoza RN
[2018-12-13] MEDS: CETIRIZINE 10 MG TAB PO SCH (19:33)
[2018-12-13] MEDS: MELATONIN 3 MG TAB PO SCH (21:55)
[2018-12-14] MEDS: methylPREDNISolone SOD SUCC 125 MG/2 ML VIAL IVP SCH ×2 (00:08→06:05)
[2018-12-14] MEDS: TMP IV SCH ×4 (02:03→20:05)
[2018-12-14] MEDS: D5W IV SCH ×4 (02:03→20:05)
[2018-12-14] MEDS: SULFAMETHOX IV SCH ×4 (02:03→20:05)
[2018-12-14] MEDS: LEVOTHYROXINE 50 MCG TAB PO SCH (06:07)
[2018-12-14] MEDS: RIVAROXABAN 15 MG TAB PO SCH ×2 (06:07→18:21)
[2018-12-14] MEDS: DEXAMETHASONE 4 MG TAB PO SCH (06:07)
[2018-12-14] MEDS: SENNOSIDES 1 TAB PO SCH ×2 (09:45→20:27)
[2018-12-14] MEDS: guaiFENesin 600 MG TAB.ER PO SCH ×2 (09:45→20:28)
[2018-12-14] MEDS: CHOLECALCIFEROL VIT D3 2,000 UNITS TAB/CAP PO SCH (09:45)
[2018-12-14] MEDS: FERROUS SULFATE 325 MG TAB PO SCH (09:45)
[2018-12-14] MEDS: DOCUSATE SODIUM 100 MG CAP PO SCH (09:45)
[2018-12-14] MEDS: POTASSIUM CL 20 MEQ PKT PO SCH ×2 (09:46→20:44)
--- NOTE | 2018-12-14 11:37 | HOSPPROG ---
Hospitalist Progress Note Assessment/Plan: 78 yo F w metastatic cholangiocarcinoma here w weakness, hypoxemia, rhinovirus Hypoxemia: +rhino/enterovirus, b/l airpsace disease, at risk for pneumocystis though bronch stains neg, no response to IV lasix x2. Overall improved today. Discussed with Dr. Cespedes and Dr. Tillman -change to po prednisone -cont ceftriaxone +/- Bactrim for PCP (might d/c per ID with neg pcp stains on bronch) dex therapy: on taper, which may be contributing to weakness -will dc dex since on high dose prednisone, will need taper thrush: clotrimazole cholangiocarcinoma: has not received chemo xrt for brain mets proph: scd dispo: cont inpt code: DNR Subjective: Pt feeling better this am, able to walk more, less short of breath. Coughing a bit. Denies CP. No fevers. Taking po ok. Objective: Vital Signs Temp Pulse Resp BP Pulse Ox 36.3 C 58 L 18 99/47 L 94 12/14/18 04:57 12/14/18 04:57 12/14/18 04:57 12/14/18 04:57 12/14/18 04:57 Microbiology 12/12/18 13:17 Gram Stain - Final Bronchial Alveolar Lavage - Right Lobe 12/12/18 13:17 Mycobacterial Smear (THERESA) - Final Bronchial Alveolar Lavage - Right Lobe Mycobacterium tuberculosis DNA (PCR - Final Pcr Negative For M. Tb Complex Laboratory Results 12/12/18 04:56 12/14/18 04:35 12/13/18 12/14/18 12/15/18 05:59 05:59 05:59 Intake Total 350 1650 Output Total 225 Balance 125 1650 PT 31.9 SEC (12.0-15.0) H 12/10/18 10:45 INR 3.12 (0.83-1.16) H 12/10/18 10:45 - Physical Exam Constitutional: no apparent distress Eyes: PERRL Ears, Nose, Mouth, Throat: moist mucous membranes Cardiovascular: regular rate and rhythym Respiratory: no respiratory distress, reduced air movement, other (a few bibasilar crackles) Gastrointestinal: normoactive bowel sounds, soft, non-tender abdomen Skin: warm Musculoskeletal: full muscle strength Neurologic: AAOx3 Psychiatric: interacting appropriately ICD10 Worksheet Patient Problems: Problems Problem Status Onset Primary gall bladder adenocarcinoma Acute Pulmonary infiltrate Acute chronic disease mgmt/transitional care Acute
--- NOTE | 2018-12-14 11:41 | PDINTPN ---
Sap Basis Architect Progress Note Assessment/Plan: Assessment/plan: * Metastatic cholangiocarcinoma * Brain Mets * Diffuse infiltrates-unclear etiology. Clinically markedly improved -Pneumocystis carinii pneumonia smear is negative -continue high-dose steroids * Acute respiratory failure-improved. FiO2 is weaning. Subjective: Sitting up in chair. Resting comfortably. Ambulated earlier. Less breathless. Objective: Vital Signs Temp Pulse Resp BP Pulse Ox 36.3 C 58 L 18 99/47 L 94 12/14/18 04:57 12/14/18 04:57 12/14/18 04:57 12/14/18 04:57 12/14/18 04:57 Microbiology 12/12/18 13:17 Gram Stain - Final Bronchial Alveolar Lavage - Right Lobe 12/12/18 13:17 Mycobacterial Smear (THERESA) - Final Bronchial Alveolar Lavage - Right Lobe Mycobacterium tuberculosis DNA (PCR - Final Pcr Negative For M. Tb Complex Laboratory Results 12/12/18 04:56 12/14/18 04:35 12/13/18 12/14/18 12/15/18 05:59 05:59 05:59 Intake Total 350 1650 Output Total 225 Balance 125 1650 PT 31.9 SEC (12.0-15.0) H 12/10/18 10:45 INR 3.12 (0.83-1.16) H 12/10/18 10:45 - Time Spent With Patient Time Spent With Patient: 25 min of time spent with patient, over 1/2 involved coordination of care or counseling. Case discussed with hospitalist Physical Exam - Physical Exam General Appearance: alert, no apparent distress EENT: PERRL/EOMI, pharynx normal Neck: non-tender, supple Respiratory: crackles (Bibasilar), No respiratory distress, No wheezing Cardiac/Chest: normal peripheral pulses, regular rate, rhythm, systolic murmur Peripheral Pulses: 2+: carotid (R), carotid (L), femoral (R), femoral (L), dorsalis-pedis (R), dorsalis-pedis (L) Abdomen: normal bowel sounds, non-tender, soft Pelvic Exam: deferred Rectal: deferred Skin: warm/dry Extremities: non-tender Neuro/Psych: no motor/sensory deficits, alert, normal mood/affect, oriented x 3 ICD10 Worksheet Patient Problems: Problems Problem Status Onset Primary gall bladder adenocarcinoma Acute Pulmonary infiltrate Acute chronic disease mgmt/transitional care Acute
--- NOTE | 2018-12-14 11:52 | PCMIDPN ---
Assessment/Plan: 1. Hypoxemic respiratory failure/ground-glass opacities in immunocompromised host: Agree with Dr. Koehler in that difficult to tease out whether this is all secondary to a viral lower respiratory tract infection, vs. PcP or both. Improvement seems rather rapid for Pneumocystis, which suggests viral pneumonia. For now, have added respiratory pathogen PCR to bronch wash [facility] If there is evidence of rhino virus/ enterovirus in lower respiratory tract, coupled with negative Pneumocystis stains on bronch wash, this would increase my comfort level for stopping Bactrim (converting to prophylactic dose). If bronch wash does not reveal evidence of rhino virus/enterovirus, may opt to treat patient with a course of oral Bactrim, as sensitivity of Pneumocystis staining in the HIV uninfected population is much lower than the HIV infected population. Will discuss with my colleagues as well. Thankfully, she is tolerating Bactrim quite well with stable creatinine and potassium. Will also continue ceftriaxone for 1 more day , to complete 5 days of therapy. Check Legionella antigen for completeness, although this seems less likely. NB: Beta D glucan is pending. Unfortunately, there is not enough bronch wash specimen available to send to [facility] for Pneumocystis PCR. 2. Oral candidiasis: Patient denies symptoms suggestive of esophageal involvement. Will start with clotrimazole troches. Over 25 min spent with this patient today. Subjective: Feeling much better today. Son is present in the room, and corroborates that. No nausea, vomiting or diarrhea or rash. No sore throat. No problems swallowing food. Objective: Bactrim 130 mg trimethoprim q.6 hours d2 Ceftriaxone 1 g IV daily day 4 Status post azithromycin x3 days 94% on 8 L No fevers Vital Signs Temp Pulse Resp BP Pulse Ox 36.3 C 58 L 18 99/47 L 94 12/14/18 04:57 12/14/18 04:57 12/14/18 04:57 12/14/18 04:57 12/14/18 04:57 Microbiology 12/12/18 13:17 Gram Stain - Final Bronchial Alveolar Lavage - Right Lobe 12/12/18 13:17 Mycobacterial Smear (THERESA) - Final Bronchial Alveolar Lavage - Right Lobe Mycobacterium tuberculosis DNA (PCR - Final Pcr Negative For M. Tb Complex Laboratory Results 12/12/18 04:56 12/14/18 04:35 12/13/18 12/14/18 12/15/18 05:59 05:59 05:59 Intake Total 350 1650 Output Total 225 Balance 125 1650 Bronchoscopy: No malignant cells, Pneumocystis stains negative x2 RP P positive for rhino virus/enterovirus Bronchoscopy bacterial culture with oral rose Fungal culture pending TB PCR negative - Physical Exam General Appearance: alert, no apparent distress EENT: thrush Respiratory: lungs clear Cardiac/Chest: regular rate, rhythm Extremities: No pedal edema Abdomen: non-tender, soft Skin: No rash ICD10 Worksheet Patient Problems: Problems Problem Status Onset Primary gall bladder adenocarcinoma Acute Pulmonary infiltrate Acute chronic disease mgmt/transitional care Acute
[2018-12-14] MEDS: predniSONE 20 MG TAB PO SCH (12:31)
--- NOTE | 2018-12-14 13:59 | SOAPPROG ---
SOAP Progress Note Assessment/Plan: Assessment: - pulm infiltrates -requiring 6L O2. CXR from 14 DEC 2018 improving. Bronchoscopy results negative so far. - Brain mets due to GB CA - MRI stable to improved compared to the most recent MRI - GB CA - No evidence of new or worsening disease below the diaphragm. Her major life threatening issue is her pulmonary infiltrates and respiratory failure. This could be related to infection (viral, pneumocystis) vs. lymphangitic CA vs. fluid overload. Fortunately there seems to be some improvement. ID input appreciated Plan: - continue empiric RX - check bronch results as they become available -will discuss further with patient and family as information comes in. Subjective: Walked with walker today Objective: Vital Signs Temp Pulse Resp BP Pulse Ox 36.3 C 74 18 101/57 L 87 L 12/14/18 04:57 12/14/18 12:39 12/14/18 12:39 12/14/18 12:39 12/14/18 12:39 Microbiology 12/12/18 13:17 Gram Stain - Final Bronchial Alveolar Lavage - Right Lobe 12/12/18 13:17 Mycobacterial Smear (THERESA) - Final Bronchial Alveolar Lavage - Right Lobe Mycobacterium tuberculosis DNA (PCR - Final Pcr Negative For M. Tb Complex Laboratory Results 12/12/18 04:56 12/14/18 04:35 12/12/18 12/13/18 12/14/18 23:59 23:59 23:59 Intake Total 350 1500 150 Output Total 425 Balance -75 1500 150 PT 31.9 SEC (12.0-15.0) H 12/10/18 10:45 INR 3.12 (0.83-1.16) H 12/10/18 10:45 Physical Exam - Physical Exam General Appearance: alert, mild distress Respiratory: decreased breath sounds, No crackles Cardiac/Chest: regular rate, rhythm Abdomen: normal bowel sounds Skin: pallor ICD10 Worksheet Patient Problems: Problems Problem Status Onset Primary gall bladder adenocarcinoma Acute Pulmonary infiltrate Acute chronic disease mgmt/transitional care Acute - ICD10 Problem Qualifiers (1) Pulmonary infiltrate (2) Primary gall bladder adenocarcinoma
[2018-12-14] MEDS: CETIRIZINE 10 MG TAB PO SCH (18:21)
[2018-12-14] MEDS: MELATONIN 3 MG TAB PO SCH (20:27)
[2018-12-14] MEDS: NYSTATIN SUSP 500000 UNIT/5 ML UD LIQ PO SCH (20:27)
[2018-12-14] MEDS: CLOTRIMAZOLE 10 MG TROCHE PO SCH (21:57)
[2018-12-15] MEDS: SULFAMETHOX IV SCH ×2 (02:01→08:30)
[2018-12-15] MEDS: TMP IV SCH ×2 (02:01→08:30)
[2018-12-15] MEDS: D5W IV SCH ×2 (02:01→08:30)
[2018-12-15] MEDS: LEVOTHYROXINE 50 MCG TAB PO SCH (06:23)
[2018-12-15] MEDS: NYSTATIN SUSP 500000 UNIT/5 ML UD LIQ PO SCH ×4 (06:23→20:33)
[2018-12-15] MEDS: RIVAROXABAN 15 MG TAB PO SCH ×2 (06:23→18:34)
[2018-12-15] MEDS: CLOTRIMAZOLE 10 MG TROCHE PO SCH ×2 (06:23→09:53)
[2018-12-15] MEDS: DOCUSATE SODIUM 100 MG CAP PO SCH (09:51)
[2018-12-15] MEDS: guaiFENesin 600 MG TAB.ER PO SCH ×2 (09:52→20:33)
[2018-12-15] MEDS: SENNOSIDES 1 TAB PO SCH ×2 (09:52→20:33)
[2018-12-15] MEDS: predniSONE 20 MG TAB PO SCH (09:52)
[2018-12-15] MEDS: FERROUS SULFATE 325 MG TAB PO SCH (09:52)
[2018-12-15] MEDS: CHOLECALCIFEROL VIT D3 2,000 UNITS TAB/CAP PO SCH (09:52)
[2018-12-15] MEDS: POTASSIUM CL 20 MEQ PKT PO SCH ×2 (09:53→20:33)
--- NOTE | 2018-12-15 11:15 | HOSPPROG ---
Hospitalist Progress Note Assessment/Plan: 78 yo F w metastatic cholangiocarcinoma here w weakness, hypoxemia, rhinovirus Hypoxemia: +rhino/enterovirus, b/l airpsace disease, at risk for pneumocystis though bronch stains neg, no response to IV lasix x2. Overall improved today. Discussed with Dr. Cespedes and Dr. Tillman -cont po prednisone, plan for slow taper -d/c ceftriaxone (day 5) -per ID, decrease bactrim to pplx dose, PCP less likely dex therapy: on taper, which may be contributing to weakness -dex d/c'd since on high dose prednisone, will need taper thrush: clotrimazole cholangiocarcinoma: has not received chemo xrt for brain mets proph: scd dispo: cont inpt, possibly home with C in next few days code: DNR Subjective: PT feels better. Breathing improved, ambulating better. Still weak. No CP or SOB at rest. Less cough. No fevers. Adequate po intake. Objective: Vital Signs Temp Pulse Resp BP Pulse Ox 36.3 C 57 L 16 94/58 L 96 12/15/18 08:16 12/15/18 08:16 12/15/18 08:16 12/15/18 08:16 12/15/18 08:16 Microbiology 12/12/18 13:17 Gram Stain - Final Bronchial Alveolar Lavage - Right Lobe Bronchial Culture - Final Laboratory Results 12/12/18 04:56 12/14/18 04:35 12/14/18 12/15/18 12/16/18 05:59 05:59 05:59 Intake Total 1650 300 Output Total 900 500 Balance 1650 -600 -500 PT 31.9 SEC (12.0-15.0) H 12/10/18 10:45 INR 3.12 (0.83-1.16) H 12/10/18 10:45 - Physical Exam Constitutional: no apparent distress Eyes: PERRL Ears, Nose, Mouth, Throat: moist mucous membranes Cardiovascular: regular rate and rhythym Respiratory: no respiratory distress, clear to auscultation Gastrointestinal: normoactive bowel sounds, soft, non-tender abdomen Skin: warm Musculoskeletal: full muscle strength, no joint effusions Psychiatric: interacting appropriately ICD10 Worksheet Patient Problems: Problems Problem Status Onset Primary gall bladder adenocarcinoma Acute Pulmonary infiltrate Acute chronic disease mgmt/transitional care Acute
--- NOTE | 2018-12-15 12:55 | SOAPPROG ---
SOAP Progress Note Assessment/Plan: Assessment/plan: * Metastatic cholangiocarcinoma * Brain Mets * Diffuse infiltrates-unclear etiology. Continues to improve clinically -Pneumocystis carinii pneumonia smear is negative -continue high-dose steroids * Acute respiratory failure-improved. FiO2 is weaning. -continue to wean FiO2 * Out of bed to chair * Ambulation Subjective: Resting comfortably. Feels markedly improved. Less breathless. Objective: Vital Signs Temp Pulse Resp BP Pulse Ox 35.8 C L 63 16 108/56 L 90 L 12/15/18 11:48 12/15/18 11:48 12/15/18 11:48 12/15/18 11:48 12/15/18 11:48 Microbiology 12/12/18 13:17 Gram Stain - Final Bronchial Alveolar Lavage - Right Lobe Bronchial Culture - Final Laboratory Results 12/12/18 04:56 12/14/18 04:35 12/14/18 12/15/18 12/16/18 05:59 05:59 05:59 Intake Total 1650 300 Output Total 900 500 Balance 1650 -600 -500 PT 31.9 SEC (12.0-15.0) H 12/10/18 10:45 INR 3.12 (0.83-1.16) H 12/10/18 10:45 - Time Spent With Patient Time Spent With Patient: 25 min of time spent with patient, over 1/2 involved with coordination of care or counseling Physical Exam - Physical Exam General Appearance: alert, no apparent distress EENT: PERRL/EOMI Neck: non-tender, supple Respiratory: crackles (Few), No respiratory distress, No wheezing Cardiac/Chest: normal peripheral pulses, regular rate, rhythm Peripheral Pulses: 2+: carotid (R), carotid (L), femoral (R), femoral (L), dorsalis-pedis (R), dorsalis-pedis (L) Abdomen: normal bowel sounds, non-tender, soft Pelvic Exam: deferred Rectal: deferred Skin: normal color, warm/dry Extremities: normal range of motion, non-tender, normal inspection, normal capillary refill Neuro/Psych: no motor/sensory deficits, alert, normal mood/affect, oriented x 3 ICD10 Worksheet Patient Problems: Problems Problem Status Onset Primary gall bladder adenocarcinoma Acute Pulmonary infiltrate Acute chronic disease mgmt/transitional care Acute
--- NOTE | 2018-12-15 13:32 | PCMIDPN ---
Assessment/Plan: 1. Hypoxemic respiratory failure/ground-glass opacities in immunocompromised host: Now that her bronch wash is positive for rhino virus/enterovirus, coupled with negative Pneumocystis stains on the bronch wash, I feel comfortable discontinuing high-dose Bactrim. She does not have Pneumocystis pneumonia, but has a viral lower respiratory tract infection. Given ongoing high-dose corticosteroids, will change Bactrim to prophylactic double strength tablet Q Monday. Ceftriaxone was discontinued today after 5 days. Spent quite some time talking to the patient's today, explaining entire situation. 2. Oral candidiasis: Apparently did not tolerate clotrimazole and is now on nystatin swish and swallow. Over 25 min spent with this patient today. 12/15/18 13:29 Subjective: Patient is sleeping, and wanted her to continue sleeping. Therefore, I did not wake her up. She continues to improve; oxygen requirement going down. Objective: Bactrim 130 mg q.6 hours day 3 Ceftriaxone 1 g IV daily day 5 Status post azithromycin x3 days Vital Signs Temp Pulse Resp BP Pulse Ox 35.8 C L 63 16 108/56 L 90 L 12/15/18 11:48 12/15/18 11:48 12/15/18 11:48 12/15/18 11:48 12/15/18 11:48 Microbiology 12/12/18 13:17 Gram Stain - Final Bronchial Alveolar Lavage - Right Lobe Bronchial Culture - Final Laboratory Results 12/12/18 04:56 12/14/18 04:35 12/14/18 12/15/18 12/16/18 05:59 05:59 05:59 Intake Total 1650 300 Output Total 900 1100 Balance 1650 -600 -1100 BAL positive for rhino virus/enterovirus at [facility] Pneumocystis stains negative on BAL - Physical Exam General Appearance: other (Patient is sleeping. As per the above, I did not wake her.) ICD10 Worksheet Patient Problems: Problems Problem Status Onset Primary gall bladder adenocarcinoma Acute Pulmonary infiltrate Acute chronic disease mgmt/transitional care Acute
--- NOTE | 2018-12-15 16:51 | ASMTCMCOM ---
CM Note CM Note Notes: Spoke with pt's at length regarding non-skilled homecare needs vs skilled homecare. He is overwhelmed with options and feels pressured by his children to get [facility] services. He feels he doesn't need help with transportation, housekeeping, meal preparation. Therapy is recommending skilled PT. Encouraged him to wait a few days to see how pt responds to therapy and hopefully continues to gain some strength. Ideally, pt can be discharged with skilled HC/PT/OT/HARM REDUCTION WORKER and they can assess better what her needs may be after she gets home. They can contact [facility] when they have more information. Pt's will think about options and discuss with family. D/C plan: TBD Date Signed: 12/15/2018 04:50 PM Electronically Signed By:SHANNON Patel
[2018-12-15] MEDS: CETIRIZINE 10 MG TAB PO SCH (18:34)
[2018-12-15] MEDS: MELATONIN 3 MG TAB PO SCH (20:33)
[2018-12-16 04:56] LABS: PLATELET COUNT 343 10^3/uL (150-400)
[2018-12-16] MEDS: RIVAROXABAN 15 MG TAB PO SCH ×2 (06:58→17:52)
[2018-12-16] MEDS: NYSTATIN SUSP 500000 UNIT/5 ML UD LIQ PO SCH ×4 (06:58→20:51)
[2018-12-16] MEDS: LEVOTHYROXINE 50 MCG TAB PO SCH (06:58)
[2018-12-16] MEDS: DOCUSATE SODIUM 100 MG CAP PO SCH (09:51)
[2018-12-16] MEDS: CHOLECALCIFEROL VIT D3 2,000 UNITS TAB/CAP PO SCH (09:51)
[2018-12-16] MEDS: guaiFENesin 600 MG TAB.ER PO SCH ×2 (09:51→20:45)
[2018-12-16] MEDS: predniSONE 20 MG TAB PO SCH (09:51)
[2018-12-16] MEDS: POTASSIUM CL 20 MEQ PKT PO SCH ×2 (09:52→20:45)
[2018-12-16] MEDS: FERROUS SULFATE 325 MG TAB PO SCH (09:52)
--- NOTE | 2018-12-16 12:05 | SOAPPROG ---
SOAP Progress Note Assessment/Plan: Assessment: SOAP Progress Note Assessment/Plan: Assessment: - Pulmonary infiltrates -Rhinovirus/enterovirus on bronch. Being treated with steroids, on prophylactic bactrim. requiring 6L O2. - Brain mets due to GB CA - MRI stable to improved compared to the most recent MRI - GB CA - No evidence of new or worsening disease below the diaphragm. Plan: - continue steroids - eventually will need oncology follow up with Dr. Bishop Subjective: no pain, no new symptoms Objective: Vital Signs Temp Pulse Resp BP Pulse Ox 36.6 C 77 16 121/62 H 97 12/16/18 09:47 12/16/18 12:00 12/16/18 12:00 12/16/18 12:00 12/16/18 12:00 Microbiology 12/12/18 13:17 Gram Stain - Final Bronchial Alveolar Lavage - Right Lobe Bronchial Culture - Final Laboratory Results 12/16/18 04:20 12/16/18 04:20 12/15/18 12/16/18 12/17/18 05:59 05:59 05:59 Intake Total 300 575 Output Total 900 1400 Balance -600 -825 PT 31.9 SEC (12.0-15.0) H 12/10/18 10:45 INR 3.12 (0.83-1.16) H 12/10/18 10:45 Physical Exam - Physical Exam General Appearance: alert, other (chronically ill appearing) Respiratory: lungs clear Abdomen: non-tender, soft Extremities: No pedal edema ICD10 Worksheet Patient Problems: Problems Problem Status Onset Primary gall bladder adenocarcinoma Acute Pulmonary infiltrate Acute chronic disease mgmt/transitional care Acute
--- NOTE | 2018-12-16 12:24 | PDINTPN ---
Desizing Machine Operator Head End Progress Note Assessment/Plan: Assessment/plan: * Metastatic cholangiocarcinoma * Brain Mets * Diffuse infiltrates-unclear etiology. Continues to improve clinically -Pneumocystis carinii pneumonia smear is negative -continue high-dose steroids * Acute respiratory failure-improved. FiO2 is markedly improved -continue to wean FiO2 * Out of bed to chair * Ambulation * Disposition-likely stable for home tomorrow Subjective: Resting comfortably. No current complaints. Objective: Vital Signs Temp Pulse Resp BP Pulse Ox 36.6 C 77 16 121/62 H 97 12/16/18 09:47 12/16/18 12:00 12/16/18 12:00 12/16/18 12:00 12/16/18 12:00 Microbiology 12/12/18 13:17 Gram Stain - Final Bronchial Alveolar Lavage - Right Lobe Bronchial Culture - Final Laboratory Results 12/16/18 04:20 12/16/18 04:20 12/15/18 12/16/18 12/17/18 05:59 05:59 05:59 Intake Total 300 575 Output Total 900 1400 Balance -600 -825 PT 31.9 SEC (12.0-15.0) H 12/10/18 10:45 INR 3.12 (0.83-1.16) H 12/10/18 10:45 - Time Spent With Patient Time Spent With Patient: 25 min of time spent with patient, over 1/2 involved with coordination of care counseling. Case discussed with hospitalist Physical Exam - Physical Exam General Appearance: alert, no apparent distress EENT: PERRL/EOMI Neck: non-tender, supple Respiratory: crackles (Few basilar), No respiratory distress, No wheezing Cardiac/Chest: normal peripheral pulses, regular rate, rhythm Abdomen: normal bowel sounds, non-tender, soft Pelvic Exam: deferred Rectal: deferred Skin: warm/dry Extremities: non-tender Neuro/Psych: alert, normal mood/affect, oriented x 3 ICD10 Worksheet Patient Problems: Problems Problem Status Onset Primary gall bladder adenocarcinoma Acute Pulmonary infiltrate Acute chronic disease mgmt/transitional care Acute
--- NOTE | 2018-12-16 12:40 | PCMIDPN ---
Assessment/Plan: 1. Rhinovirus lower respiratory tract infection: Marked improvement. Antimicrobials have been stopped. She is now on prophylactic Bactrim 3 times a week in the setting of concomitant high-dose corticosteroids. If steroids are discontinued moving forward, prophylactic Bactrim can be stopped as well. 2. Oral candidiasis: Also much better. Continue nystatin swish and spit. This will continue to be a problem on corticosteroids, so should continue this medication. Infectious Disease will sign off. Please feel free to call with questions. Subjective: Feels much better. Is now on room air. Objective: Bactrim DS 3 times a week Nystatin swish and spit Vital Signs Temp Pulse Resp BP Pulse Ox 36.6 C 77 16 121/62 H 97 12/16/18 09:47 12/16/18 12:00 12/16/18 12:00 12/16/18 12:00 12/16/18 12:00 Microbiology 12/12/18 13:17 Gram Stain - Final Bronchial Alveolar Lavage - Right Lobe Bronchial Culture - Final Laboratory Results 12/16/18 04:20 12/16/18 04:20 12/15/18 12/16/18 12/17/18 05:59 05:59 05:59 Intake Total 300 575 Output Total 900 1400 Balance -600 -825 - Physical Exam General Appearance: no apparent distress, cachetic, other (Mild dysphonia) EENT: other (Thrush no longer visible) Respiratory: lungs clear ICD10 Worksheet Patient Problems: Problems Problem Status Onset Primary gall bladder adenocarcinoma Acute Pulmonary infiltrate Acute chronic disease mgmt/transitional care Acute
--- NOTE | 2018-12-16 13:31 | HOSPPROG ---
Hospitalist Progress Note Assessment/Plan: 78 yo F w metastatic cholangiocarcinoma here w weakness, hypoxemia, rhinovirus Hypoxemia: much better, now on room air from 6 LPM. +rhino/enterovirus, b/l airpsace disease. Bronch stains neg for PCP. -cont po prednisone, plan for slow taper over 2 weeks -s/p 5 days ceftriaxone -per ID, decrease bactrim to pplx dose as PCP less likely with deep bronch specimens pos for rhinovirus dex therapy: on taper, which may be contributing to weakness -dex d/c'd since on high dose prednisone, planning for taper as above thrush: nystatin swish and spit cholangiocarcinoma: has not received chemo xrt for brain mets proph: scd dispo: cont inpt, home with HHC in 1-2 days code: DNR Subjective: PT feels better, breathing improved. Not much cough. No CP or SOB. No fevers. She is ambulating, still a bit weak. Appetite improving. Objective: Vital Signs Temp Pulse Resp BP Pulse Ox 36.6 C 77 16 121/62 H 97 12/16/18 09:47 12/16/18 12:00 12/16/18 12:00 12/16/18 12:00 12/16/18 12:00 Microbiology 12/12/18 13:17 Gram Stain - Final Bronchial Alveolar Lavage - Right Lobe Bronchial Culture - Final Laboratory Results 12/16/18 04:20 12/16/18 04:20 12/15/18 12/16/18 12/17/18 05:59 05:59 05:59 Intake Total 300 575 Output Total 900 1400 Balance -600 -825 PT 31.9 SEC (12.0-15.0) H 12/10/18 10:45 INR 3.12 (0.83-1.16) H 12/10/18 10:45 - Physical Exam Constitutional: no apparent distress Eyes: PERRL Ears, Nose, Mouth, Throat: moist mucous membranes Cardiovascular: regular rate and rhythym Respiratory: no respiratory distress, clear to auscultation Gastrointestinal: normoactive bowel sounds, soft, non-tender abdomen Skin: warm Musculoskeletal: full muscle strength Neurologic: AAOx3 Psychiatric: interacting appropriately ICD10 Worksheet Patient Problems: Problems Problem Status Onset Primary gall bladder adenocarcinoma Acute Pulmonary infiltrate Acute chronic disease mgmt/transitional care Acute
[2018-12-16] MEDS ORDERED: CANN-EASE 2 GM TUBE TP PRN (15:44)
--- NOTE | 2018-12-16 16:12 | ASMTCMCOM ---
CM Note CM Note Notes: Patient plan of care reviewed in rounds. Improving. Met with son and reviewed plan of care that would include HHC in addition to any help the family might hire. Referrals to [facility] agencies via allscripts. CM to follow. Plan: Home with HHC when medically cleared for discharge. Date Signed: 12/16/2018 04:11 PM Electronically Signed By:Maylin Hsu RN
[2018-12-16] MEDS: CETIRIZINE 10 MG TAB PO SCH (17:52)
[2018-12-16] MEDS: SENNOSIDES 1 TAB PO SCH ×2 (18:37→21:42)
[2018-12-16] MEDS: MELATONIN 3 MG TAB PO SCH (20:45)
[2018-12-17] MEDS: RIVAROXABAN 15 MG TAB PO SCH ×2 (06:01→18:15)
[2018-12-17] MEDS: LEVOTHYROXINE 50 MCG TAB PO SCH (06:01)
[2018-12-17] MEDS: NYSTATIN SUSP 500000 UNIT/5 ML UD LIQ PO SCH ×4 (07:47→20:05)
[2018-12-17] MEDS ORDERED: SULFAMETHOX/TMP 800/160 MG 1 TAB PO SCH (08:00)
[2018-12-17] MEDS: predniSONE 20 MG TAB PO SCH (09:20)
[2018-12-17] MEDS: guaiFENesin 600 MG TAB.ER PO SCH ×2 (09:21→20:04)
[2018-12-17] MEDS: POTASSIUM CL 20 MEQ PKT PO SCH ×2 (09:21→20:05)
[2018-12-17] MEDS: CHOLECALCIFEROL VIT D3 2,000 UNITS TAB/CAP PO SCH (09:26)
[2018-12-17] MEDS: FERROUS SULFATE 325 MG TAB PO SCH (09:27)
[2018-12-17] MEDS: SENNOSIDES 1 TAB PO SCH ×2 (09:29→20:04)
[2018-12-17] MEDS: DOCUSATE SODIUM 100 MG CAP PO SCH (09:29)
--- NOTE | 2018-12-17 15:52 | ASMTCMCOM ---
CM Note CM Note Notes: Patient pln of care reviewed in rounds. The family has elected to meet with hospice care today. The Harshil and his son met with Anita Gandhi as well as Harvinder Draper. We reconvened at 2:30 pm and the most form was filled out and Harshil the patient's and POA signed an agreement for entering hospice care at home. She will transport about 1 pm tomorrow with [facility]. CM to ask provider mi hard scripts to be sent to [facility] so family can have medications at hand. CM available should other needs arise. Plan: TO dc home with hospice tomorrow. Date Signed: 12/17/2018 03:52 PM Electronically Signed By:Maylin Hsu RN
--- NOTE | 2018-12-17 16:27 | HOSPPROG ---
Hospitalist Progress Note Assessment/Plan: 78 yo F w metastatic cholangiocarcinoma here w weakness, hypoxemia, rhinovirus. She remains weak with minimal improvement. Family has requested hospice. Hypoxemia: +rhino/enterovirus, b/l airpsace disease. Bronch stains neg for PCP. -cont po prednisone, plan for slow taper, will reduce to 40 mg tomorrow -s/p 5 days ceftriaxone -per ID, cont bactrim at pplx dose as PCP less likely with deep bronch specimens pos for rhinovirus dex therapy: dex d/c'd since on high dose prednisone, planning for taper as above thrush: nystatin swish and spit cholangiocarcinoma: has not received chemo xrt for brain mets proph: scd dispo: cont inpt, home with hospice in am code: DNR Subjective: Pt doing a bit better from respiratory standpoint, but still weak, poor appetite, not bouncing back like family had hoped. They are now requesting hospice. Objective: Vital Signs Temp Pulse Resp BP Pulse Ox 36.4 C 95 16 99/53 L 94 12/17/18 15:26 12/17/18 15:26 12/17/18 15:26 12/17/18 15:26 12/17/18 15:26 Laboratory Results 12/16/18 04:20 12/16/18 04:20 12/16/18 12/17/18 12/18/18 05:59 05:59 05:59 Intake Total 575 850 240 Output Total 1400 315 Balance -825 535 240 PT 31.9 SEC (12.0-15.0) H 12/10/18 10:45 INR 3.12 (0.83-1.16) H 12/10/18 10:45 - Physical Exam Constitutional: no apparent distress Eyes: PERRL Ears, Nose, Mouth, Throat: moist mucous membranes Cardiovascular: regular rate and rhythym Respiratory: no respiratory distress, clear to auscultation Gastrointestinal: normoactive bowel sounds, soft, non-tender abdomen Skin: warm Musculoskeletal: generalized weakness Neurologic: AAOx3 Psychiatric: interacting appropriately ICD10 Worksheet Patient Problems: Problems Problem Status Onset Primary gall bladder adenocarcinoma Acute Pulmonary infiltrate Acute chronic disease mgmt/transitional care Acute
[2018-12-17] MEDS: CETIRIZINE 10 MG TAB PO SCH (18:15)
[2018-12-17] MEDS: MELATONIN 3 MG TAB PO SCH (20:04)
[2018-12-18] MEDS: LEVOTHYROXINE 50 MCG TAB PO SCH (05:57)
[2018-12-18] MEDS: RIVAROXABAN 15 MG TAB PO SCH (05:57)
[2018-12-18] MEDS: NYSTATIN SUSP 500000 UNIT/5 ML UD LIQ PO SCH (05:58)
[2018-12-18] MEDS ORDERED: predniSONE 20 MG TAB PO SCH (09:00)
[2018-12-18] MEDS: POTASSIUM CL 20 MEQ PKT PO SCH (10:17)
[2018-12-18] MEDS: CHOLECALCIFEROL VIT D3 2,000 UNITS TAB/CAP PO SCH (10:18)
[2018-12-18] MEDS: FERROUS SULFATE 325 MG TAB PO SCH (10:18)
[2018-12-18] MEDS: DOCUSATE SODIUM 100 MG CAP PO SCH (10:18)
--- NOTE | 2018-12-18 10:18 | ASMTLACE ---
LACE Length of stay for Answers: 7-13 days current admission Acuity / Level of Answers: Yes Care: Did the patient have an inpatient admission? Comorbidities - select Answers: Any tumor (including all that apply lymphoma or leukemia) Other Notes: DVT # of Emergency department Answers: 1-2 visits in the last 6 months Score: 12 Date Signed: 12/18/2018 10:18 AM Electronically Signed By:Maylin Hsu RN
[2018-12-18] MEDS: SENNOSIDES 1 TAB PO SCH (10:19)
[2018-12-18] MEDS: guaiFENesin 600 MG TAB.ER PO SCH (10:19)
--- NOTE | 2018-12-18 10:24 | ASMTCMCOM ---
CM Note CM Note Notes: Patient to dc at 1pm via ambulance for home with hospice care from [facility]. CM available should other needs arise. Plan: Home with hospice. Date Signed: 12/18/2018 10:23 AM Electronically Signed By:Maylin Hsu RN
[2018-12-18 12:27] VITALS: BP 95/57
--- NOTE | 2018-12-18 16:52 | GDS ---
[f rep st] DISCHARGE SUMMARY DISCHARGE DIAGNOSES: 1. Hypoxemia secondary to rhinovirus and enterovirus. 2. Viral upper respiratory infection. 3. Metastatic cholangiocarcinoma. 4. Chronic steroid therapy. 5. Thrush. 6. Weakness and deconditioning. CONSULTANTS: 1. Dr. Kevon Bishop, Oncology. 2. Dr. Lan Cespedes, Pulmonology. 3. Dr. Héctor Meza, Infectious Disease. HISTORY: For details, please see the history and physical dated December 10, 2018. In brief, the pat yulia is an 78-year-old female with a history of metastatic cholangiocarcinoma who presented to the em ergency department with weakness and hypoxemia. She was admitted to the hospital for further managem ent. HOSPITAL COURSE: Patient was admitted to the oncology care unit. A CT scan on admission showed patc hy alveolar infiltrates in both lungs as well as several metastatic lesions which are slightly larger compared to her October images. In addition, there is evidence of increasing size of metastatic br ain lesions. She was started on IV Rocephin and azithromycin for pneumonia treatment. Her respirato ry viral panel was positive for rhinovirus and enterovirus. Infectious Disease consult was obtained given the unusual appearance of her pulmonary infiltrates. Some consideration was given to PCP given her chronic steroid use. She was initially treated with Bactrim IV. She underwent bronchoscopy and her PCP stains were negative. Deep bronch washings were also positive for rhinovirus and enteroviru s, confirming this was all likely a viral infection. Her Bactrim was decreased to prophylactic dosin g. She was also seen by the inpatient oncology service given her metastatic cholangiocarcinoma. She has been on long-term steroid therapy, which may be contributing to her weakness. After ongoing con sideration by her family, palliative care consult was obtained, and ultimately they wished to pursue hospice care at home. Eli has been involved. DISPOSITION: Patient is discharged on home hospice in stable condition. DISCHARGE MEDICATIONS: Please see [employer] completed outpatient medication list. New medications on discharge include Tylenol 650 p.o. q.6 hours p.r.n., Mucinex 600 mg p.o. twice miriam ly p.r.n. Prednisone taper: 40 mg p.o. daily for 2 days, then 30 mg p.o. daily for 2 days, then 20 mg p.o. daily for 2 days, then 10 mg p.o. daily for 2 days, then off. Xarelto 20 mg p.o. daily, #30, no refills. Discontinued medications: Dexamethasone was discontinued in favor of prednisone. She will continue her Synthroid 50 mcg p.o. daily, Colace 100 mg p.o. daily, and Erma 180 mg p.o. daily. /[id number]/MODL
[2018-12-21] MEDS ORDERED: RIVAROXABAN 20 MG TAB PO SCH (16:30)
--- NOTE | 2018-12-26 12:17 | ASDISCHSUM ---
Discharge Information Plan Status:Hospice-Home Medically Cleared to Leave:12/17/2018 Discharge Date:12/18/2018 01:25 PM CM D/C Disposition:Hospice Home ADT D/C Disposition:Hospice Home Projected Discharge Date:12/18/2018 11:00 AM Transportation at D/C:ALS/BLS Discharge Delay Reason: Follow-Up Date:12/18/2018 11:00 AM Discharge Slot: Final Diagnosis: Placement Information Referral Type:*Home Health Care Services Referral ID:[id number] Provider Name: Address 1: Phone Number: Address 2: Fax Number: City: Selection Factors: State: Referral Type:*Hospice Referral ID:[id number] Provider Name:[facility] Address 1:[address] Phone Number: Address 2: Fax Number: [facility]:[place] Selection Factors: State:[place] Patient Contact Information Contact Name:JASON Relationship: Address:[address] [place] [address] Work Phone: City:[place] Alternate Phone: State/Zip Code:[place] [address] Email: Financial Information Financial Class:Medicare Primary Plan Desc:MEDICARE INPATIENT Primary Plan Number:[id number] Secondary Plan Desc:[employer] Secondary Plan Number:[id number] Assessment Information LACE LACE Length of stay for Answers: 7-13 days current admission Acuity / Level of Answers: Yes Care: Did the patient have an inpatient admission? Comorbidities - select Answers: Any tumor (including all that apply lymphoma or leukemia) Other Notes: DVT # of Emergency department Answers: 1-2 visits in the last 6 months Score: 12 Date Signed: 12/18/2018 10:18 AM Electronically Signed By:Maylin Hsu RN [facility] Progress Note CM Note CM Note Notes: [facility] palliative and [facility] met w patient and her and son today (she is already followed by [facility]). They are not ready to transition to hospice; they will continue to treat her PNA. She had a bronchoscopy today. has made it clear that he wants to take patient home, so we may need to offer additional resources closer to d/c. He is working on obtaining a hospital bed. Case Management will follow. Current Discharge plan: TBD; patient is current with [facility] Date Signed: 12/13/2018 02:52 PM Electronically Signed By:Marcie Zaragoza RN [facility] Progress Note CM Note CM Note Notes: Please refer to EVI Jack's, note previously for additional info. Met with patient's , Harshil, and son. made it very clear that at this time, they would like to continue with Palliative Care, not Hospice ([facility] involved). Due to patient's deconditioning, family has made it clear that they anticipate needing much help at home. We discussed Private Duty options as well as Medical HHC. Family would like to have an information meeting with a [employer] care company tomorrow. has set-up [facility] and [facility] will arrive on Monday at 1 p.m. The plan is to aggressively treat the PNA for now, will continue to assess patient and family's needs daily. has already started working on order a hospital bed, he understands he can contact for additional help with DME. Plan: TBD - likely return home with HHC, private help and [facility]. Date Signed: 12/13/2018 04:11 PM Electronically Signed By:Sherry Rushing [facility] CM Progress Note CM Note CM Note Notes: Spoke with pt's at length regarding non-skilled homecare needs vs skilled homecare. He is overwhelmed with options and feels pressured by his children to get [facility] services. He feels he doesn't need help with transportation, housekeeping, meal preparation. Therapy is recommending skilled PT. Encouraged him to wait a few days to see how pt responds to therapy and hopefully continues to gain some strength. Ideally, pt can be discharged with skilled HC/PT/OT/CHEMISTS and they can assess better what her needs may be after she gets home. They can contact [facility] when they have more information. Pt's will think about options and discuss with family. D/C plan: TBD Date Signed: 12/15/2018 04:50 PM Electronically Signed By:SHANNON Patel [facility] CM Progress Note CM Note CM Note Notes: Patient plan of care reviewed in rounds. Improving. Met with son and reviewed plan of care that would include HHC in addition to any help the family might hire. Referrals to HHC agencies via allvaripts. CM to follow. Plan: Home with [facility] when medically cleared for discharge. Date Signed: 12/16/2018 04:11 PM Electronically Signed By:Maylin Hsu RN [facility] CM Progress Note CM Note CM Note Notes: Patient pln of care reviewed in rounds. The family has elected to meet with hospice care today. The Harshil and his son met with Anita stark [facility] as well as Harvinder Draper. We reconvened at 2:30 pm and the most form was filled out and Harshil the patient's and POA signed an agreement for entering hospice care at home. She will transport about 1 pm tomorrow with [facility] to ask provider fro hard scripts to be sent to [facility] so family can have medications at hand. CM available should other needs arise. Plan: TO dc home with hospice tomorrow. Date Signed: 12/17/2018 03:52 PM Electronically Signed By:Maylin Hsu RN [facility] Progress Note CM Note CM Note Notes: Patient to dc at 1pm via ambulance for home with hospice care from [facility]. CM available should other needs arise. Plan: Home with hospice. Date Signed: 12/18/2018 10:23 AM Electronically Signed By:Maylin Hsu RN Intervention Information Intervention Type:IM-Pt. Not Available Date of Service:12/18/2018 11:35 AM Patient Type:Inpatient Staff Member:Lyric Mcallister Hours: Discipline: Severity: Comment:Patient is discharging home with toñito [facility]
--- NOTE | 2019-01-03 12:23 | PQFORM ---
PHYSICIAN QUERY FORM Needs Your Response This query form is being sent to you to assure this patient record is coded properly. 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 Tillman, In the Discharge Summary, it is noted patient had 'Hypoxemia secondary to Rhinovirus/enterovirus.' In Dr. Cespedes's 12/11 consultation patient was diagnosed with acute respiratory failure requiring high oxygen. Noted in the Hospitalist Progress notes patient had 'AHRF.' Noted in the SOAP notes patient had 'acute respiratory failure.' Noted in the Bread Packer Progress notes patient was also noted to have 'acute respiratory failure.' In the Infectious Disease Progress notes patient was diagnosed with 'Acute hypoxia.' After study , can this patient diagnosis of hypoxemia be further specified? Acute respiratory failure, unspecified __x___Acute respiratory failure w/ hypoxia Respiratory failure, unspecified Respiratory failure, unspecified w/ hypoxia Other more appropriate diagnosis (please specify) ___ Unable to determine Thank you Jie Brown, [facility] HIM/Coding dept. INSTRUCTIONS FOR RESPONSE: Answer question by clicking on the "Edit Document" button. Move cursor to area below the stars. When complete, hit "Save." Click on the "Sign" button, then click "Sign" again. Type in your PIN and hit "Enter." MTDD
== END 2018-12-18 13:25 | disposition hospice, home (50) | DRG 189 ==
LOC: F1N 14:47
PROVIDERS: ADMIT Internal Medicine; ATTEND Internal Medicine
PROC: 0B9F8ZX Drainage of Right Lower Lung Lobe, Via Natural or Artificial Opening Endoscopic, Diagnostic (ICD-10-PCS; principal; 2018-12-12 13:00)
PROC: 0B9D8ZX Drainage of Right Middle Lung Lobe, Via Natural or Artificial Opening Endoscopic, Diagnostic (ICD-10-PCS; principal; 2018-12-12 13:00)
DX: J96.01 Acute respiratory failure with hypoxia (principal); C79.31 Secondary malignant neoplasm of brain; C23 Malignant neoplasm of gallbladder; B37.0 Candidal stomatitis; J06.9 Acute upper respiratory infection, unspecified; B97.10 Unspecified enterovirus as the cause of diseases classified elsewhere; J00 Acute nasopharyngitis [common cold]; E86.0 Dehydration; R53.1 Weakness; H40.9 Unspecified glaucoma; E03.9 Hypothyroidism, unspecified; M81.0 Age-related osteoporosis without current pathological fracture; E78.5 Hyperlipidemia, unspecified; Z66 Do not resuscitate; Z86.718 Personal history of other venous thrombosis and embolism; Z79.52 Long term (current) use of systemic steroids; Z79.01 Long term (current) use of anticoagulants; Z86.11 Personal history of tuberculosis
CPT/HCPCS: 87449-90; 96365; 97116-GP; 97162-GP; 97167-GO; 97530-GO; 97530-GP; 97535-GO; A9585; J0171; J0456; J0696; J1940; J2250; J2704; J2930; J7512; J7613; P9041; P9047; Q9967